=== PATIENT | male | born 1980 | race Caucasian/White ===

== ENCOUNTER 2019-03-27 00:33 | Inpatient (IN) | payer SELFPAY ==
[2019-03-27] VITALS (9 sets, daily range): BP systolic 114–171; BP diastolic 66–87
[~2019-03-27] VITALS: Ht 180.3 cm; Wt 104.7 kg
[2019-03-27 01:28] LABS: BASO # 0.1 10^3/uL (0.0-0.2); BASO % 0.2 % (0.0-1.0); HEMATOCRIT 42.3 % (42.0-52.0); HEMOGLOBIN 13.7 g/dl (13.5-17.5); LYMPH # 0.6 10^3/uL (1.5-5.0); LYMPH % 2.2 % (24.0-44.0); MEAN CORPUSCULAR HEMOGLOBIN 28.7 pg (27.0-33.0); MEAN CORPUSCULAR HGB CONC 32.4 g/dl (32.0-36.5); MEAN CORPUSCULAR VOLUME 88.5 fl (80.0-96.0); MONO # 1.7 10^3/uL (0.0-0.8); PLATELET COUNT, AUTOMATED 310 10^3/uL (150-450); RED BLOOD COUNT 4.78 10^6/uL (4.30-6.10); WHITE BLOOD COUNT 28.5 10^3/uL (4.0-10.0)
[2019-03-27 01:39] LABS: INR 1.31; PARTIAL THROMBOPLASTIN TIME 32.2 SECONDS (25.0-38.4)
[2019-03-27 01:48] LABS: ERYTHROCYTE SEDIMENTATION RATE 12 mm/hr (0-15); NEUTROPHILS # 25.4 10^3/uL (1.5-8.5)
[2019-03-27] MEDS ORDERED: MORPHINE 4 MG/ML 1ML VIAL/SYRINGE (J2270) IV ONE (02:00)
[2019-03-27] MEDS ORDERED: AMPICILLIN SOD/SULBACTAM SOD 3 GM in D5W MINI-BAG PLUS 100 ML IV ONE (02:00)
[2019-03-27 02:01] LABS: ALBUMIN 2.6 GM/DL (3.2-5.2); ALT/SGPT 43 U/L (12-78); BILIRUBIN,DIRECT 0.4 MG/DL (0.0-0.2); BLOOD UREA NITROGEN 9 MG/DL (7-18); CALCIUM LEVEL 8.2 MG/DL (8.5-10.1); CARBON DIOXIDE LEVEL 25 MEQ/L (21-32); CHLORIDE LEVEL 92 MEQ/L (98-107); CREATININE FOR GFR 1.27 MG/DL (0.70-1.30); GLOMERULAR FILTRATION RATE > 60.0 (>60); GLUCOSE, FASTING 280 MG/DL (70-100); POTASSIUM SERUM 3.4 MEQ/L (3.5-5.1); SODIUM LEVEL 128 MEQ/L (136-145); TOTAL PROTEIN 8.7 GM/DL (6.4-8.2)
[2019-03-27] MEDS ORDERED: NS 3,680 ML in IV 1 EA IV ONE (02:15)
[2019-03-27] MEDS ORDERED: MOM 30ML SUSPENSION UDC PO PRN (02:30)
[2019-03-27] MEDS ORDERED: MAALOX 30 ML SUSP *UDC PO PRN (02:30)
--- NOTE | 2019-03-27 02:40 | REPVR ---
PROCEDURE INFORMATION: Exam: XR Right Toe(s) Exam date and time: 03/27/2019 1:51 AM Age: 38 years old Clinical indication: Other: Necrotic/ holes in great toes; Additional info: Necrosis/infection b great toe/? Osteomyelitis TECHNIQUE: Imaging protocol: XR Right toes. Views: Minimum 2 views. COMPARISON: No relevant prior studies available. FINDINGS: Bones/joints: Plantar ulceration of the mid great toe. There is erosion of the adjacent to distal aspect of the proximal phalanx consistent with osteomyelitis. Soft tissues: Soft tissue swelling of the foot, particularly the great toe with multiple foci of gas throughout the medial foot and toes. IMPRESSION: 1. Soft tissue swelling of the foot and great toe with soft tissue gas consistent with infection and cellulitis. 2. Plantar ulceration of the great toe with adjacent erosion of the distal aspect of the proximal phalanx consistent with osteomyelitis. The PROCEDURE INFORMATION: Exam: XR Left Toe(s) Exam date and time: 03/27/2019 1:51 AM Age: 38 years old Clinical indication: Other: Necrotic/ holes in great toes; Additional info: Necrosis/infection b great toe/? Osteomyelitis TECHNIQUE: Imaging protocol: XR Left toes. Views: Minimum 2 views. COMPARISON: No relevant prior studies available. FINDINGS: Bones/joints: There is dorsal subluxation or dislocation of the distal phalanx relative to the proximal phalanx. Fractures of the proximal aspect of the distal phalanx and the distal aspect of the proximal phalanx, particularly dorsally. There is suggestion of some cortical erosion of the proximal phalanx. Soft tissues: Soft tissue swelling of the distal foot and great toe. IMPRESSION: 1. Soft tissue swelling of the great toe which may reflect infection. 2. Dorsal dislocation of the distal phalanx with fracturing of the adjacent proximal aspect of the distal phalanx and distal aspect of the proximal phalanx. There is suggestion of some cortical erosion of the proximal phalanx and findings may reflect osteomyelitis with septic interphalangeal joint. Electronically signed by: Frankie Ivy On 03/27/2019 02:40:17 AM
[2019-03-27] MEDS ORDERED: GLUCAGON FOR INJ 1 MG VIAL (J1610) SC PRN (02:45)
[2019-03-27] MEDS ORDERED: DEXTROSE 50% 50 ML SYRINGE IV PRN (02:45)
[2019-03-27] MEDS ORDERED: GLUCOSE 4 GM CHEW TABLET PO PRN (02:45)
[2019-03-27 03:03] LABS: VENOUS BASE EXCESS 2.3 (-2.0-2.0); VENOUS HCO3 27.5 MEQ/L (23.0-27.0); VENOUS O2 SATURATION 57.2 % (60.0-80.0); VENOUS PARTIAL PRESSURE CO2 44.8 mmHg (38.0-50.0); VENOUS PARTIAL PRESSURE O2 29.2 mmHg (30.0-50.0); VENOUS PH 7.406 UNITS (7.330-7.430); VENOUS STANDARD HCO3 25.4 MEQ/L; VENOUS TOTAL CO2 28.9 MEQ/L (24.0-28.0)
--- NOTE | 2019-03-27 03:43 | HPEPDOC ---
[facility] Medical History & Physical Date of Admission Mar 27, 2019 Date of Service: Mar 27, 2019 Attending Physician: Gerry History and Physical CHIEF COMPLAINT: f/c/ ambulatory dysfunction HISTORY OF PRESENT ILLNESS: Patient is a 38-year-old male with PMH of obesity, tobacco dependence, presenting with ambulatory dysfunction. He reports being a workaholic and has not seen provider for 2 years. Approximately one and half to 2 years ago, he started to have bilateral foot numbness and tingling. Earlier today he started to have chills, subjective fevers and increased right foot pain and subsequently came to the emergency department. He was afebrile in the ED, was found to be tachycardic. Labs include WBC of 28.5, H&H and platelet counts were within normal limits, ESR 12, sodium of 128, potassium 3.4, lactic acid 3.2, CRP 29.8, creatinine 1.72, glucose 280, alkaline phosphatase 127, patient does not have an anion gap, beta hydroxybutyrate 4, PT 16, INR 1.3, PTT 32.2. He denies any headaches, changes in vision, chest pain, shortness of breath, nausea, vomiting, abdominal pain, issues with voiding, joint pains. He was also given a bolus of normal saline IV fluids and a dose of ampicillin, a dose of morphine 4 mg IV 1, which she reports did not alleviate his pain, he does report his pain level to be an average of 2, at worst 5. ROS: 10 point review systems negative except per above. PMH: See above. 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 GENERAL: Obese male in No distress, able to speak in full sentences without difficulty HEENT: Normocephalic, atraumatic, moist mucous membranes NECK: Supple CARDIOVASCULAR EXAMINATION: S1, S2 RESPIRATORY EXAMINATION: CTAB ABDOMINAL EXAMINATION: Soft, nontender, nondistended, positive bowel sounds EXTREMITIES: no edema SKIN: No rash NEUROLOGICAL EXAMINATION: Awake PSYCHIATRIC EXAMINATION: Calm and cooperative, appropriate affect #Sepsis secondary to bilateral osteomyelitis and cellulitis, patient does have underlying newly diagnosed diabetes complicated by neuropathy. Will start patient on broad-spectrum antibiotics, IVF, consult it and discuss case with podiatry, NPO after midnight. Follow-up wound cultures bilaterally, blood cultures. Pain control, avoid opioids. #Leukocytosis/lactic acidosis secondary to infection, see above #Hyperglycemia/Diabetes, will have to be instituted and dependent. Patients A1c is 10, will start patient on insulin sliding scale with hypoglycemic protocol, diabetic education #Ambulatory dysfunction secondary to osteomyelitis/diabetic neuropathy, will have PT eval, start patient on gabapentin. #Hyponatremia, consider secondary in part to pseudo-hyponatremia, corrected sodium is 131, to alcohol use, will obtain urine and serum sodium levels and osmolarity for further evaluation of hyponatremia #Hypokalemia: Replace, will obtain a mag level #Tobacco dependence: Nicotine patch #family hx of DM and SLE: also obtain TSH/T4 DVT prophylaxis. Heparin Full code Vital Signs Vital Signs Date Time Temp Pulse Resp B/P (MAP) Pulse Ox O2 Delivery O2 Flow Rate FiO2 03/27/19 03:14 99.2 120 22 123/78 (93) 100 03/27/19 00:34 Room Air Laboratory Data Labs 24H Laboratory Tests 2 03/27/19 01:19: Immature Granulocyte % (Auto) 2.6, Neutrophils (%) (Auto) 89.0H, Lymphocytes (%) (Auto) 2.2L, Monocytes (%) (Auto) 6.0H, Eosinophils (%) (Auto) 0.0, Basophils (%) (Auto) 0.2, Neutrophils # (Auto) 25.4H, Lymphocytes # (Auto) 0.6L, Monocytes # (Auto) 1.7H, Eosinophils # (Auto) 0.0, Basophils # (Auto) 0.1, Nucleated Red Blood Cells % (auto) 0.0, Erythrocyte Sedimentation Rate 12, Prothrombin Time 16.0H, Prothromb Time International Ratio 1.31, Activated Partial Thromboplast Time 32.2, Anion Gap 11, Glomerular Filtration Rate > 60.0, Estimated Mean Plasma Glucose 240H, Hemoglobin A1c 10.0, Lactic Acid Level 3.2*H, Calcium Level 8.2L, Total Bilirubin 1.0, Direct Bilirubin 0.4H, Aspartate Amino Transf (AST/SGOT) 34, Alanine Aminotransferase (ALT/SGPT) 43, Alkaline Phosphatase 127H, C-Reactive Protein, Quantitative 29.80H, Total Protein 8.7H, Albumin 2.6L, Albumin/Globulin Ratio 0.43L, B-Hydroxybutyrate 4.00H 03/27/19 02:47: Blood Gas Bicarbonate Standard 25.4, Venous Blood pH 7.406, Venous Blood Partial Pressure CO2 44.8, Venous Blood Partial Pressure O2 29.2L, Venous Blood Total Carbon Dioxide 28.9H, Venous Blood HCO3 27.5H, Venous Blood Oxygen Saturation 57.2L, Venous Blood Base Excess 2.3H CBC/BMP Laboratory Tests 03/27/19 01:19 Microbiology Microbiology 03/27/19 Blood Culture, Received Pending 03/27/19 Blood Culture, Received Pending Home Medications No Active Prescriptions or Reported Meds Allergies Coded Allergies: No Known Allergies (Unverified , 03/27/19) A-FIB/CHADSVASC A-FIB History Current/History of A-Fib/PAF?: No DILLON NORMAN MD Mar 27, 2019 03:19
[2019-03-27] MEDS ORDERED: POTASSIUM CHLORIDE 10 MEQ SR TABLET PO ONE (04:00)
[2019-03-27 04:11] LABS: FREE T4 1.49 NG/DL (0.76-1.46)
[2019-03-27 05:00] LABS: D-DIMER QUANT 3081.83 ng/ml (<500)
[2019-03-27] MEDS: NS 1,000 ML IV SCH ×3 (05:08→23:31)
[2019-03-27] MEDS: HEPARIN SOD (PORCINE) 5000 UNITS/ML VIAL SC SCH ×3 (05:37→21:33)
[2019-03-27] MEDS: CEFEPIME HCL 2 GM in D5W MINI-BAG PLUS 50 ML IV SCH ×3 (05:37→21:34)
--- NOTE | 2019-03-27 06:04 | PHACANCOPD ---
PHARMACY VANCOMYCIN DOSING Pt Demographics Demographics Patient Age:38 , Weight:122.730 , Gender: male Adjusted Body Weight Date: 03/27/19, Adjusted Body Weight: [94.3] Kg Vancomycin Vancomycin indication: CELLULITIS,OSTEO RT TOE Vancomycin Target Ranges: 15-20 mcg/ml Vancomycin Load Y/N: Yes Load Dose Date Time Vancomycin Load Dose: 2GM Date: 03/27 Time: 0700 Vancomycin Dose Date: 03/27/19. Current Vancomycin Dose: [1 GM Q8H] Intermittent Dosing?: No Labs Micro Microbiology 03/27/19 Wound Culture, Received Pending 03/27/19 Wound Culture, Received Pending 03/27/19 Blood Culture, Received Pending 03/27/19 Blood Culture, Received Pending Creatinine Clearance Date:03/27/19. Creatinine Clearance: [107].CALCULATED Assessment and Plan Maintaining Current Dose?: Yes Reason for dose change: No Dose Change Pharmacist Note Pharmacist Note Date: 03/27/19. Pharmacist note:38 YOM ADMITTED W/ cellulitis/osteo rt toe.SCR=1.27,calculated OEGH=080, HT:71",WT:122.73 kg(ABW=91.44kg).Ordered Cefepime 2 grams IV Q8H and pharmacy dosed Vancomycin. Vancomycin 2 gram load ordered, then will begin 1 gram IV Q8Hour regimen. First trough is ordered for 03/28@0600(prior to the 4th dose). Will continue to follow and make adjustments as needed VI[facility] Mar 27, 2019 06:04
[2019-03-27] MEDS ORDERED: VANCOMYCIN HCL 1,000 MG, VIAL MATE ADAPTER 1 EACH in D5W 250 ML IV ONE ×2 (07:00→08:00)
[2019-03-27] MEDS: HumaLOG INSULIN (NovoLOG) PER UNIT SC SCH ×4 (07:30→21:00)
--- NOTE | 2019-03-27 08:23 | IPN ---
DATE: 03/27/2019 CHIEF COMPLAINT: 38-year-old male, newly diagnosed diabetic seen for evaluation post swelling, pain, discharge from both his big toes. The patient states he has been noticing a callus, which broke open on the bottom of his foot for approximately 3 years. The patient did not seek any medical attention for this. He states recently that it became very swollen and had numbness and tingling. States had a fever and subsequently went to the emergency room and is admitted. SOCIAL HISTORY: The patient smokes 1-1-1/2 packs of tobacco per day. Occasional alcohol consumption. PAST SURGICAL HISTORY: Status post tonsillectomy. PHYSICAL EXAMINATION: The patient is an awake, alert and oriented, 38-year-old male. He has considerable swelling present of his right foot with cellulitis up to his mid foot. There is some swelling localized around the left big toe, however, the ulcer on the left toe has necrotic change on the hallux. Both ulcers extend down to bone. X-rays were reviewed revealing osseous loss of the proximal phalanx head. On the left hallux there is some cortical erosion of the proximal phalanx, which may represent osteomyelitis on the right big toe. The dorsalis pedis and posterior tibial pulses are palpable. There is good range of motion of the ankle, metatarsal and subtalar joints. The nails are considerably thickened and dystrophic. ASSESSMENT: 1. Osteomyelitis with necrosis left hallux. 2. Stage IV ulceration right big toe with infection, possible osteomyelitis. PLAN: The patient is scheduled for an MRI of both toes today. The patient is nothing by mouth after breakfast. We discussed the surgical procedure consisting of a left partial hallux amputation, right surgical debridement up to and possibly including bone pending the MRI. His questions are answered. Informed consent was obtained and signed by the patient.
[2019-03-27] MEDS: DOCUSATE SODIUM 100 MG CAP PO SCH ×2 (08:54→21:33)
[2019-03-27] MEDS: GABAPENTIN 100 MG CAP PO SCH ×3 (08:54→21:33)
[2019-03-27] MEDS: NICOTINE 21MG/24HR 1 EA TRANSDERMAL TD SCH (08:55)
[2019-03-27] MEDS: ACETAMINOPHEN TAB 650MG DOSE (2X325MG) PO PRN (12:06)
[2019-03-27] MEDS: VANCOMYCIN HCL 1,000 MG, VIAL MATE ADAPTER 1 EACH in D5W 250 ML IV SCH ×2 (16:36→23:32)
[2019-03-27] MEDS ORDERED: BUPIVACAINE HCL 0.5% 30 ML VIAL As Ordered ONE (17:26)
[2019-03-27] MEDS ORDERED: GENTAMICIN SULF INJ 80MG/2ML VIAL (J1580) As Ordered ONE (17:26)
[2019-03-27] MEDS ORDERED: LIDOCAINE 2% MDV 20 ML VIAL As Ordered ONE (17:26)
[2019-03-27] MEDS ORDERED: KETAMINE HCL 200 MG/20 ML VIAL As Ordered ONE (17:37)
[2019-03-27] MEDS ORDERED: MIDAZOLAM INJ 2 MG/2 ML VIAL (J2250) As Ordered ONE ×2 (17:38→18:09)
[2019-03-27] MEDS ORDERED: propofoL 200 MG/20 ML VIAL As Ordered ONE (17:38)
[2019-03-27] MEDS ORDERED: LIDOCAINE 2% INJ 100 MG/5 ML SDV (FOR ANES.) As Ordered ONE (17:38)
[2019-03-27] MEDS ORDERED: fentaNYL 100 MCG/2 ML INJECTION (J3010) As Ordered ONE (17:38)
[2019-03-27] MEDS ORDERED: dexameTHASONE 4 MG/ML 1ML VIAL (J1100) As Ordered ONE (17:44)
[2019-03-27] MEDS ORDERED: MIDAZOLAM INJ 5 MG/ML VIAL (J2250) As Ordered ONE (18:10)
[2019-03-27] MEDS ORDERED: PERCOCET 5MG/325MG TAB PO PRN ×2 (20:15)
[2019-03-28 00:10] VITALS: BP 139/76
--- NOTE | 2019-03-28 01:31 | REP ---
Clinical: Pain. Technique: AP, lateral, oblique view of the left foot. Findings: Evidence for prior partial amputation at the level of the first metatarsophalangeal joint. Visualized osseous structures are intact and essentially normal. Lateral view demonstrates moderate calcaneal heal spur. Surrounding soft tissues are grossly unremarkable. Impression: No obvious acute process appreciated. Electronically Signed by Bob Jean Baptiste MD 03/28/2019 01:22 A
[2019-03-28] MEDS: NS 1,000 ML IV SCH ×2 (03:05→09:53)
[2019-03-28 04:00] VITALS: BP 144/83
[2019-03-28] MEDS: HEPARIN SOD (PORCINE) 5000 UNITS/ML VIAL SC SCH ×3 (06:05→21:26)
[2019-03-28] MEDS: CEFEPIME HCL 2 GM in D5W MINI-BAG PLUS 50 ML IV SCH ×3 (06:06→21:26)
[2019-03-28 06:19] LABS: HEMATOCRIT 36.5 % (42.0-52.0); HEMOGLOBIN 11.8 g/dl (13.5-17.5); MEAN CORPUSCULAR HEMOGLOBIN 28.9 pg (27.0-33.0); MEAN CORPUSCULAR HGB CONC 32.3 g/dl (32.0-36.5); MEAN CORPUSCULAR VOLUME 89.2 fl (80.0-96.0); PLATELET COUNT, AUTOMATED 234 10^3/uL (150-450); RED BLOOD COUNT 4.09 10^6/uL (4.30-6.10); WHITE BLOOD COUNT 11.9 10^3/uL (4.0-10.0)
[2019-03-28 06:40] LABS: BLOOD UREA NITROGEN 6 MG/DL (7-18); CALCIUM LEVEL 8.1 MG/DL (8.5-10.1); CARBON DIOXIDE LEVEL 26 MEQ/L (21-32); CHLORIDE LEVEL 103 MEQ/L (98-107); CREATININE FOR GFR 0.81 MG/DL (0.70-1.30); GLOMERULAR FILTRATION RATE > 60.0 (>60); GLUCOSE, FASTING 169 MG/DL (70-100); POTASSIUM SERUM 3.2 MEQ/L (3.5-5.1); SODIUM LEVEL 135 MEQ/L (136-145); VANCOMYCIN LEVEL TROUGH 6.3 UG/ML (10.0-20.0)
--- NOTE | 2019-03-28 06:52 | PHACANCOPD ---
PHARMACY VANCOMYCIN DOSING Pt Demographics Demographics Patient Age:38 , Weight:108.600 , Gender: male Adjusted Body Weight Date: 03/27/19, Adjusted Body Weight: [94.3] Kg Events Past 24 Hours Events Past 24 Hours: NO: Dialysis, Diuretic Therapy, Change in CrCl, Fever, Elevation in WBC, Pending Diagnostics, Pending Procedures, Other Vancomycin Vancomycin indication: CELLULITIS,OSTEO RT TOE Vancomycin Target Ranges: 15-20 mcg/ml Vancomycin Load Y/N: Yes Load Dose Date Time Vancomycin Load Dose: 2GM Date: 03/27 Time: 0700 Vancomycin Dose Date: 03/28/19. Current Vancomycin Dose: [1.5 GM Q6H] Intermittent Dosing?: No Labs Labs Item Value Date Time White Blood Count 11.9 10^3/uL H 03/28/19 0549 Glomerular Filtration Rate > 60.0 03/28/19 0549 Creatinine 0.81 MG/DL 03/28/19 0549 Blood Urea Nitrogen 6 MG/DL L 03/28/19 0549 Vancomycin Level Trough 6.3 UG/ML L 03/28/19 0549 Vital Signs Label Value Date Time Patient Temperature 96.8 degrees F 03/28/19 0400 Temperature Source Temporal 03/28/19 0400 Micro Microbiology 03/27/19 Wound Culture, Received Pending 03/27/19 Wound Culture, Received Pending 03/27/19 Blood Culture - Preliminary, Resulted No growth after 24 hours . All specim... 03/27/19 Blood Culture - Preliminary, Resulted No growth after 24 hours . All specim... 03/27/19 Wound Culture, Received Pending 03/27/19 Anaerobic Culture, Received Pending 03/27/19 Wound Culture, Received Pending 03/27/19 Anaerobic Culture, Received Pending Creatinine Clearance Date:03/27/19. Creatinine Clearance: [107].CALCULATED Pending Labs Trough 1-14 @1300 Assessment and Plan Maintaining Current Dose?: No Reason for dose change: Trough too low Pharmacist Note Pharmacist Note Date: 03/28/19. Pharmacist note:Trough of 6.3 is below target range. Dosing increased to 1500mg q6h. Will monitor and make adjustments as needed. [facility] Mar 28, 2019 06:52
--- NOTE | 2019-03-28 07:14 | REP ---
MRI bilateral foot: Without contrast. History: Bilateral exam attention great toe bilaterally. Bilateral ulcers. Evaluate for osteomyelitis. Comparison is made with today's radiographs showing soft tissue gas and soft tissue deficit in the right medial forefoot and extensive soft tissue swelling and bony erosive change in the left great toe phalanges. Technique: Axial, coronal and sagittal imaging planes were utilized. T1 and T2-weighted scans were included with and without fat saturation. MRI findings right foot: T1 and T2-weighted scans demonstrate innumerable bubbles of air in the plantar soft tissues of the medial forefoot along the plantar aspect of the first metatarsal and proximal phalanx extending into the first intermetatarsal space. No soft tissue abscess is appreciated. There is some decreased T1 increased T2 signal intensity in the proximal phalanx of the right great toe. No cortical destruction is seen. There is a small joint effusion at the first MTP joint of the right great toe. Signal intensity on T1 and T2-weighted scans is normal in the first metatarsal. Metatarsals are otherwise intact. Signal intensity in the other phalanges is intact. There is evidence of a focal plantar skin deficit at the level of the IP joint of the great toe. Impression: Soft tissue gas in the plantar aspect medial forefoot. No soft tissue abscess is seen. There is low T1 high T2 signal intensity in the proximal phalanx of the right great toe which may reflect osteomyelitis. No cortical destruction is seen. MRI findings left foot: On the left, there is extensive abnormal low T1 and high T2 signal intensity throughout the proximal phalanx and distal phalanx of the great toe consistent with osteomyelitis. Bone signal intensity in the first metatarsal on the left is normal. No soft tissue abscess is seen. On axial images there is extensive cortical destruction in the proximal phalanx and distal phalanx of the great toe. Impression: There is evidence of advanced osteomyelitis affecting the proximal and distal phalanges of the great toe on the left side. There is abnormal signal intensity suggesting significant edema in the proximal and distal phalanges of the right great toe however no cortical disruption is seen on the right. No soft tissue abscess is seen on either side. There is extensive soft tissue gas in the plantar soft tissues on the right medial forefoot. Electronically Signed by Rodolfo Aden MD 03/28/2019 07:53 A
[2019-03-28 08:00] VITALS: BP 127/72
[2019-03-28] MEDS ORDERED: VANCOMYCIN HCL 1,000 MG, VIAL MATE ADAPTER 1 EACH in D5W 250 ML IV SCH (08:00)
[2019-03-28] MEDS: HumaLOG INSULIN (NovoLOG) PER UNIT SC SCH ×4 (08:56→21:30)
[2019-03-28] MEDS: NICOTINE 21MG/24HR 1 EA TRANSDERMAL TD SCH (08:56)
[2019-03-28] MEDS: DOCUSATE SODIUM 100 MG CAP PO SCH ×2 (08:57→21:25)
[2019-03-28] MEDS: GABAPENTIN 100 MG CAP PO SCH ×3 (08:57→21:25)
[2019-03-28] MEDS ORDERED: VANCOMYCIN HCL 500 MG in D5W MINI-BAG PLUS 100 ML IV SCH (09:00)
--- NOTE | 2019-03-28 09:26 | RO ---
DATE OF PROCEDURE: 03/27/2019 PREOPERATIVE DIAGNOSES: 1. Osteomyelitis left hallux. 2. Stage IV ulceration right foot. POSTOPERATIVE DIAGNOSES: 1. Osteomyelitis left hallux. 2. Stage IV ulceration right foot with plantar space infection and dorsal space infection right foot. PROCEDURE:1. hallux amputation left foot 2. I&D dorsal, plantar superficial and deep compartment right foot 3. debredement of muscle and tendon right foot. SURGEON: Mateus Jin DPM [place] PILOT: None. ANESTHESIA: Local monitored anesthesia care (MAC). IRRIGATION: Dilute gentamicin solution 3 liters, low pressure pulse lavage system. PACKING UTILIZED: 1/2 inch iodoform gauze. ESTIMATED BLOOD LOSS: 40 mL. DESCRIPTION OF PROCEDURE: On 03/27/2019, this 38-year-old white male was taken from his hospital room to the operating room and placed on the operating room table in a supine position. Following the induction of IV sedation, local and regional anesthesia, the right and left lower extremity was prepped and draped in the usual aseptic manner. Attention was noted at the right foot, where there was note to be a demarcated abscess on the plantar surface of the foot as well as an ulceration extending into the tendinous area of the right foot. Utilizing a large [place] hemostat and tongue and groove director, an incision was made on the plantar surface of the foot starting from the ulceration on the interphalangeal joint. This measured 13 cm in overall length and approximately 10-15 mL of purulent matter was expressed and collected for aerobic and anaerobic culture. The flexor hallucis longus tendon was noted to be ruptured from this plantar space infection just proximal to the ulceration on the plantar surface of the foot. This area was debrided of narcotic tissue. There was narcotic muscle of the plantar aspect of the foot as well, and this was debrided consisting of the flexor hallucis muscle. Plantar fascia was exposed and an incision was made in the plantar fascia and , and there was an abscess in the central space. However, only 2 mm of purulent matter was expressed in this area and the area was thoroughly evaluated. All areas where the abscess was exposed were debrided and explored. All purulent matter was expressed on the plantar surface. On the dorsal surface of the foot the abscess did extend around the hallux of the dorsal aspect of the foot. A hemostat was then placed into this dorsal area and a 2 cm dorsal incision was made. A minimal amount of purulent was expressed from this area, and the wound was copiously lavaged with gentamicin solution with a low pressure pulse lavage system. 1/2 inch iodoform gauze on the plantar and dorsal aspect and dry sterile dressing was applied consisting of 4 x 4's, ABD, and Kerlix. Attention was then directed to the patient's left foot, where a fishmouth incision was placed over this ulcerated area. The toe was necrotic on the plantar surface and there necrotic osteomyelitic bone. This area was debrided. Unfortunately, the proximal phalanx was noted to be necrotic right to the base and could not be salvaged, and therefore, this was surgically removed. However, there was considerable fragmentation of this bone. The area was explored and any fragments that were identified were excised and removed. All bleeders as encountered were electrocoagulated. The wound was flushed with copious amounts of dilute gentamicin with a low pressure pulse lavage system. It was packed with iodoform gauze and two stitches of #3-0 nylon suture were used to prevent contraction of the surgical margin. However, this wound as well as the right wound may need to be explored and debrided again depending on his response to his antibiotics. The patient having apparently tolerated the surgical procedure well was taken from the operating room (OR) to the recovery room for further monitoring by the anesthesia department. BETSY
[2019-03-28] MEDS: POTASSIUM CHLORIDE 10 MEQ SR TABLET PO SCH ×2 (09:52→14:05)
--- NOTE | 2019-03-28 14:01 | PHACANCOPD ---
PHARMACY VANCOMYCIN DOSING Pt Demographics Demographics Patient Age:38 , Weight:108.600 , Gender: male Adjusted Body Weight Date: 03/27/19, Adjusted Body Weight: [94.3] Kg Vancomycin Vancomycin indication: CELLULITIS,OSTEO RT TOE Vancomycin Target Ranges: 15-20 mcg/ml Vancomycin Load Y/N: Yes Load Dose Date Time Vancomycin Load Dose: 2GM Date: 03/27 Time: 0700 Vancomycin Dose Date: 03/28/19. Current Vancomycin Dose: [1.5 GM Q8H] Date: 03/28/19. Current Vancomycin Dose: [1.5 GM Q6H] Intermittent Dosing?: No Labs Micro Microbiology 03/27/19 Wound Culture, Received Pending 03/27/19 Wound Culture, Received Pending 03/27/19 Blood Culture - Preliminary, Resulted No growth after 24 hours . All specim... 03/27/19 Blood Culture - Preliminary, Resulted No growth after 24 hours . All specim... 03/27/19 Wound Culture, Received Pending 03/27/19 Anaerobic Culture, Received Pending 03/27/19 Wound Culture, Received Pending 03/27/19 Anaerobic Culture, Received Pending Creatinine Clearance Date:03/27/19. Creatinine Clearance: [107].CALCULATED Pending Labs Trough 1-14 @1300 Assessment and Plan Maintaining Current Dose?: No Reason for dose change: Trough too high Pharmacist Note Pharmacist Note Date: 03/28/19. Pharmacist note: Trough after one dose of increased dose resulted at 15.9, will change to 1500 mg IV q8h. Pharmacy will continue to monitor and make adjustments as needed. Date: 03/28/19. Pharmacist note:Trough of 6.3 is below target range. Dosing increased to 1500mg q6h. Will monitor and make adjustments as needed. WAQAR DONOHUE [facility] Mar 28, 2019 14:01
[2019-03-28 16:00] VITALS: BP 116/76
[2019-03-28] MEDS: VANCOMYCIN HCL 1,000 MG, VIAL MATE ADAPTER 1 EACH in D5W 250 ML IV SCH (17:33)
[2019-03-28] MEDS: VANCOMYCIN HCL 500 MG in D5W MINI-BAG PLUS 100 ML IV SCH (18:42)
--- NOTE | 2019-03-28 19:09 | IPNPDOC ---
Date Seen The patient was seen on 03/28/19. Progress Note SUBJECTIVE: 38-year-old male with newly diagnosed diabetes mellitus, was admitted for osteomyelitis of the left toe, status post debridement/amputation. Patient reports improvement in pain, without any other complaints at this time. He denies any shortness of breath, chest pain, nausea, vomiting, abdominal pain or diarrhea. 10 point review of system is negative except for above PHYSICAL EXAMINATION: VITAL SIGNS: Please see below. GENERAL: No distress HEENT: Normocephalic, atraumatic, moist mucous membranes NECK: Supple CARDIOVASCULAR EXAMINATION: S1, S2, no murmurs RESPIRATORY EXAMINATION: Clear to auscultation, no wheezing ABDOMINAL EXAMINATION: Soft, nontender, nondistended, positive bowel sounds EXTREMITIES: Dressing in place on both feet, clean, dry and intact SKIN: No rash NEUROLOGICAL EXAMINATION: Alert and oriented 3, no focal deficits PSYCHIATRIC EXAMINATION: Calm and cooperative LABORATORY DATA, IMAGING STUDIES, MICROBIOLOGY: Please see below. ASSESSMENT AND PLAN: 38-year-old male with newly diagnosed diabetes mellitus, was admitted for osteomyelitis, is status post debridement/amputation. PROBLEMS: 1. Left toe osteomyelitis: Status post amputation by Podiatry, continue vancomycin, cefepime, cultures pending, continue pain control. 2. Diabetes mellitus: Continue sliding scale coverage before meals and at bedtime. DVT prophylaxis: Heparin subcutaneous GI prophylaxis: Not needed VS, I&O, 24H, Fishbone Vital Signs/I&O Vital Signs Date Time Temp Pulse Resp B/P (MAP) Pulse Ox O2 Delivery O2 Flow Rate FiO2 03/28/19 16:00 97.5 97 20 116/76 (89) 97 Room Air I&O- Last 24 Hours up to 6 AM 03/28/19 06:00 Intake Total 3103 ml Output Total 3640 ml Balance -537 ml Laboratory Data 24H LABS Laboratory Tests 2 03/27/19 21:28: Bedside Glucose (Misc Panel) 266H 03/28/19 05:49: Nucleated Red Blood Cells % (auto) 0.0, Anion Gap 6L, Glomerular Filtration Rate > 60.0, Calcium Level 8.1L, Vancomycin Level Trough 6.3L 03/28/19 12:14: Bedside Glucose (Misc Panel) 184H 03/28/19 13:03: Vancomycin Level Trough 15.9 03/28/19 17:03: Bedside Glucose (Misc Panel) 192H CBC/BMP Laboratory Tests 03/28/19 05:49 Microbiology Microbiology 03/27/19 Wound Culture, Received Pending 03/27/19 Wound Culture, Received Pending 03/27/19 Blood Culture - Preliminary, Resulted No growth after 24 hours . All specim... 03/27/19 Blood Culture - Preliminary, Resulted No growth after 24 hours . All specim... 03/27/19 Wound Culture, Received Pending 03/27/19 Anaerobic Culture, Received Pending 03/27/19 Wound Culture, Received Pending 03/27/19 Anaerobic Culture, Received Pending CHARITY AVILA MD Mar 28, 2019 19:09
[2019-03-28 20:00] VITALS: BP 126/72
--- NOTE | 2019-03-28 21:47 | CR ---
DATE OF CONSULTATION: 03/28/2019 Asked to consult by Dr. Jin for evaluation of right foot osteomyelitis and deep tissue infection in a patient with sepsis. HISTORY OF PRESENT ILLNESS: Roger is a pleasant, 38-year-old gentleman with a history of obesity and tobacco dependence who presented to the hospital yesterday with fever and flu-like illness. The patient had a temperature of 102. In the emergency room he was noted to have a white count of 28,000. He was hypotensive in spite of the IV fluids. The patient was started on broad-spectrum antibiotics with vancomycin and cefepime. He had an abscess of his right foot with x-ray suggestive of osteomyelitis and his left big toe had also osteomyelitis. The patient had a history of bilateral foot numbness and tingling for about 2 years before admission. The past year he has lost about 100 pounds without even trying. He did not know why he was losing the weight. He has not been seen by a primary care provider in over 2 years. 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 He denies any nausea, vomiting, diarrhea, abdominal pain. He did complain of frequency and polydipsia and he was drinking a lot of Coke. The patient was taken to the operating room by Dr. Jin, had amputation of the left big toe and an I and D of the right foot and there was some concerning tissue that is still persistent in the right foot. There was debridement of the muscle and the tendon of the foot. The patient is feeling better today, his fever has resolved. He denies any pain in his feet but he has significant neuropathy. MEDICATIONS: - vancomycin 1.5 grams IV every 8 hours - cefepime 2 grams IV every 8 hours - gabapentin 100 mg by mouth three times a day - nicotine patch one patch daily - Lispro sliding scale - Tylenol as needed ALLERGIES: No known drug allergies. LABORATORY DATA: Yesterday, his white count was 28.5, today was 11.9, hemoglobin 11.8, hematocrit 36.5, platelets 234. ESR 12. Sodium 135, potassium 3.2, chloride 103, bicarbonate 26, BUN 6x, creatinine 0.81, glucose 169, lactic acid was 3.5, AST 34, ALT 43, alkaline phosphatase 127, CRP 29.8, total protein 8.7, albumin 2.6, TSH 1.64, free T4 slightly elevated at 1.49. Blood cultures two sets from yesterday were negative times two. Foot culture is still pending. IMAGING: Foot x-ray AP and lateral show no obvious acute process on the left side except for a calcaneus spur. Foot MRI done on 03/27/2019 of both feet shows soft tissue gas in the plantar aspect of the medial forefoot. No abscesses seen even though intraoperatively there was at least 15 mL of pus that was drained. There is osteomyelitis of the right big toe with no cortical destruction seen. There is also evidence of advanced osteomyelitis of the proximal and distal phalanges of the great toe on the left side that has been amputated. PHYSICAL EXAMINATION: Today, the patient looks good, in no acute distress. Temperature is 97.5, pulse 97, respirations 20, blood pressure 116/76, oxygen saturation 97% on room air. Heart: Normal S1, S2, tachycardiac. No murmurs, rubs or gallops. Lungs are clear. No wheezes, rales, or rhonchi. Abdomen: Obese, soft, nontender. No hepatosplenomegaly. Back: No CVA or lumbosacral tenderness. Extremities: Trace edema bilaterally. Right leg along the [place] has slight erythema and along the right foot. The right plantar aspect of the foot has a large incision extending from the big toe down to the heel with some necrotic muscle and tendon, bluish discoloration of the skin around the incision with some maceration. There is bloody discharge. The packing was removed. No significant tenderness as the patient has significant neuropathy. Decreased sensation to light touch and position sense. Left foot has amputation of the left big toe. No surrounding cellulitis. Sutures in place. +2 dorsalis pedis bilaterally. IMPRESSION: This is a 38-year-old gentleman with a recent diagnosis of diabetes with diabetic neuropathy admitted with chronic osteomyelitis of the left toe status post amputation and acute osteomyelitis of the right big toe and deep tissue abscess of the right foot with significant tendon involvement and myositis status post I and D. Blood cultures are negative. Intraoperative cultures are still pending. Clinically, the patient is doing better with current antibiotic. PLAN: I suspect the patient will need further debridement on the right foot. I discussed with Dr. Jin my findings and whether he would benefit from a wound VAC. He should continue on IV vancomycin and cefepime until results of cultures are available. I suspect the patient will need home IV antibiotics. I did discuss with him the fact that he had to be off his feet for at least 2 months and would not be able to return to work for a little until his right foot is completely healed. Also discussed with him smoking cessation as this increases his cardiac risk factor. Discussed with him his new diagnosis of diabetes and compliance with diet. Will de-escalate antibiotics as soon as cultures are available. Thank you for the consultation.
[2019-03-29] VITALS (8 sets, daily range): BP systolic 119–144; BP diastolic 72–85
[2019-03-29] MEDS: VANCOMYCIN HCL 1,000 MG, VIAL MATE ADAPTER 1 EACH in D5W 250 ML IV SCH (01:27)
[2019-03-29] MEDS: VANCOMYCIN HCL 500 MG in D5W MINI-BAG PLUS 100 ML IV SCH (02:38)
[2019-03-29] MEDS: CEFEPIME HCL 2 GM in D5W MINI-BAG PLUS 50 ML IV SCH (06:01)
[2019-03-29] MEDS: HEPARIN SOD (PORCINE) 5000 UNITS/ML VIAL SC SCH ×3 (06:01→21:01)
[2019-03-29 08:15] LABS: HEMOGLOBIN 11.5 g/dl (13.5-17.5); MEAN CORPUSCULAR HEMOGLOBIN 28.6 pg (27.0-33.0); MEAN CORPUSCULAR HGB CONC 31.9 g/dl (32.0-36.5); MEAN CORPUSCULAR VOLUME 89.6 fl (80.0-96.0); PLATELET COUNT, AUTOMATED 256 10^3/uL (150-450); RED BLOOD COUNT 4.02 10^6/uL (4.30-6.10); WHITE BLOOD COUNT 12.8 10^3/uL (4.0-10.0)
[2019-03-29] MEDS: GABAPENTIN 100 MG CAP PO SCH ×3 (08:24→20:16)
[2019-03-29] MEDS: HumaLOG INSULIN (NovoLOG) PER UNIT SC SCH ×4 (08:24→20:09)
[2019-03-29] MEDS: NICOTINE 21MG/24HR 1 EA TRANSDERMAL TD SCH (08:25)
[2019-03-29] MEDS: DOCUSATE SODIUM 100 MG CAP PO SCH ×2 (09:00→20:16)
[2019-03-29 09:08] LABS: BLOOD UREA NITROGEN 6 MG/DL (7-18); CALCIUM LEVEL 7.7 MG/DL (8.5-10.1); CARBON DIOXIDE LEVEL 23 MEQ/L (21-32); CHLORIDE LEVEL 105 MEQ/L (98-107); CREATININE FOR GFR 0.69 MG/DL (0.70-1.30); GLOMERULAR FILTRATION RATE > 60.0 (>60); GLUCOSE, FASTING 146 MG/DL (70-100); MAGNESIUM LEVEL 2.1 MG/DL (1.8-2.4); POTASSIUM SERUM 3.5 MEQ/L (3.5-5.1); SODIUM LEVEL 137 MEQ/L (136-145)
[2019-03-29] MEDS: ceFAZolin SOD 2 GM in IV 1 EA IV SCH ×2 (12:18→20:16)
[2019-03-29] MEDS ORDERED: LIDOCAINE 2% MDV 20 ML VIAL As Ordered ONE (13:31)
[2019-03-29] MEDS ORDERED: BUPIVACAINE HCL 0.5% 10 ML VIAL As Ordered ONE (13:31)
[2019-03-29] MEDS ORDERED: propofoL 200 MG/20 ML VIAL As Ordered ONE ×2 (16:13→18:01)
[2019-03-29] MEDS ORDERED: LIDOCAINE 2% INJ 100 MG/5 ML SDV (FOR ANES.) As Ordered ONE (16:13)
[2019-03-29] MEDS ORDERED: ONDANSETRON 4MG/2ML VIAL (J2405) As Ordered ONE (16:14)
[2019-03-29] MEDS ORDERED: dexameTHASONE 4 MG/ML 1ML VIAL (J1100) As Ordered ONE (16:14)
[2019-03-29] MEDS ORDERED: MIDAZOLAM INJ 2 MG/2 ML VIAL (J2250) As Ordered ONE (16:14)
[2019-03-29] MEDS ORDERED: KETAMINE HCL 200 MG/20 ML VIAL As Ordered ONE (17:38)
[2019-03-29] MEDS ORDERED: GENTAMICIN SULF INJ 80MG/2ML VIAL (J1580) As Ordered ONE (17:40)
[2019-03-29] MEDS ORDERED: ONDANSETRON 4MG/2ML VIAL (J2405) IV PRN (19:00)
[2019-03-29] MEDS ORDERED: LR 1,000 ML IV SCH (19:00)
[2019-03-29] MEDS ORDERED: PERCOCET 5MG/325MG TAB PO PRN (19:00)
[2019-03-29] MEDS ORDERED: MORPHINE 2 MG/ML 1ML VIAL (J2270) IV PRN (19:00)
--- NOTE | 2019-03-29 20:12 | IPNPDOC ---
Date Seen The patient was seen on 03/29/19. Progress Note SUBJECTIVE: 38-year-old male with newly diagnosed diabetes mellitus, was admitted for osteomyelitis of the left toe, status post debridement/amputation. Patient reports improvement in pain, without any other complaints at this time. He denies any shortness of breath, chest pain, nausea, vomiting, abdominal pain or diarrhea. 03/29/19 Patient comfortable in the morning, schedule for further debridement of R foot today. He denies any SOB, CP, N/V/D or abdominal pain. 10 point review of system is negative except for above PHYSICAL EXAMINATION: VITAL SIGNS: Please see below. GENERAL: No distress HEENT: Normocephalic, atraumatic, moist mucous membranes NECK: Supple CARDIOVASCULAR EXAMINATION: S1, S2, no murmurs RESPIRATORY EXAMINATION: Clear to auscultation, no wheezing ABDOMINAL EXAMINATION: Soft, nontender, nondistended, positive bowel sounds EXTREMITIES: Dressing in place on both feet, clean, dry and intact SKIN: No rash NEUROLOGICAL EXAMINATION: Alert and oriented 3, no focal deficits PSYCHIATRIC EXAMINATION: Calm and cooperative LABORATORY DATA, IMAGING STUDIES, MICROBIOLOGY: Please see below. ASSESSMENT AND PLAN: 38-year-old male with newly diagnosed diabetes mellitus, w as admitted for osteomyelitis, is status post debridement/amputation. PROBLEMS: 1. Left toe osteomyelitis: Status post amputation by Podiatry, cultures growing MSSA & strep, antibiotics switched to Ancef, continue pain control. R foot deep tissue infection w/ abscess - s/p debridement x1, scheduled for repeat debridement today. 2. Diabetes mellitus: Continue sliding scale coverage before meals and at bedtime. DVT prophylaxis: Heparin subcutaneous GI prophylaxis: Not needed VS, I&O, 24H, Ricardo Vital Signs/I&O Vital Signs Date Time Temp Pulse Resp B/P (MAP) Pulse Ox O2 Delivery O2 Flow Rate FiO2 03/29/19 19:10 97.5 93 18 129/75 (93) 95 Room Air 03/29/19 18:42 10 I&O- Last 24 Hours up to 6 AM 03/29/19 06:00 Intake Total 2170 ml Output Total 1250 ml Balance 920 ml Laboratory Data 24H LABS Laboratory Tests 2 03/28/19 21:24: Bedside Glucose (Misc Panel) 254H 03/29/19 07:43: Bedside Glucose (Misc Panel) 148H 03/29/19 08:04: Nucleated Red Blood Cells % (auto) 0.0, Anion Gap 9, Glomerular Filtration Rate > 60.0, Calcium Level 7.7L, Phosphorus Level 3.0, Magnesium Level 2.1, C- Reactive Protein, Quantitative 23.60H, Vancomycin Level Trough 14.6 03/29/19 11:54: Bedside Glucose (Misc Panel) 167H 03/29/19 16:26: Bedside Glucose (Misc Panel) 154H 03/29/19 18:48: Bedside Glucose (Misc Panel) 174H 03/29/19 19:53: Bedside Glucose (Misc Panel) 207H CBC/BMP Laboratory Tests 03/29/19 08:04 Microbiology Microbiology 03/27/19 Wound Culture - Preliminary, Resulted Staphylococcus Aureus Strep Agalactiae Group B Corynebacterium Species 03/27/19 Wound Culture - Preliminary, Resulted Staphylococcus Aureus Strep Agalactiae Group B Corynebacterium Species 03/27/19 Blood Culture - Preliminary, Resulted No Growth after 48 hours. All Specime... 03/27/19 Blood Culture - Preliminary, Resulted No Growth after 48 hours. All Specime... 03/27/19 Wound Culture - Preliminary, Resulted Strep Agalactiae Group B Staphylococcus Aureus 03/27/19 Anaerobic Culture, Resulted Pending 03/27/19 Wound Culture - Preliminary, Resulted Strep Agalactiae Group B 03/27/19 Anaerobic Culture, Resulted Pending CHARITY AVILA MD Mar 29, 2019 20:12
--- NOTE | 2019-03-29 22:16 | IPN ---
DATE: 03/29/2019 CHIEF COMPLAINT: Patient seen for evaluation of his left foot. Patient's bandage was removed, revealing an incision in the dorsal and plantar aspect of the foot with necrotic wound margins on the medial and lateral border. There is some purulent discharge with plantar pressure coming from the inferior aspect of the inferior incision. Patient is scheduled for a surgical debridement of his right foot. Informed consent was obtained.
[2019-03-30 04:00] VITALS: BP 131/80
[2019-03-30] MEDS: ceFAZolin SOD 2 GM in IV 1 EA IV SCH ×3 (04:25→20:10)
[2019-03-30] MEDS: HEPARIN SOD (PORCINE) 5000 UNITS/ML VIAL SC SCH ×3 (05:27→20:12)
[2019-03-30 05:57] LABS: HEMATOCRIT 37.8 % (42.0-52.0); MEAN CORPUSCULAR HEMOGLOBIN 28.4 pg (27.0-33.0); MEAN CORPUSCULAR HGB CONC 31.7 g/dl (32.0-36.5); MEAN CORPUSCULAR VOLUME 89.4 fl (80.0-96.0); PLATELET COUNT, AUTOMATED 295 10^3/uL (150-450); RED BLOOD COUNT 4.23 10^6/uL (4.30-6.10); WHITE BLOOD COUNT 11.7 10^3/uL (4.0-10.0)
[2019-03-30 06:16] LABS: BLOOD UREA NITROGEN 10 MG/DL (7-18); CALCIUM LEVEL 7.8 MG/DL (8.5-10.1); CARBON DIOXIDE LEVEL 26 MEQ/L (21-32); CHLORIDE LEVEL 101 MEQ/L (98-107); CREATININE FOR GFR 0.75 MG/DL (0.70-1.30); GLOMERULAR FILTRATION RATE > 60.0 (>60); GLUCOSE, FASTING 299 MG/DL (70-100); POTASSIUM SERUM 3.9 MEQ/L (3.5-5.1); SODIUM LEVEL 134 MEQ/L (136-145)
[2019-03-30 08:00] VITALS: BP 118/82
[2019-03-30] MEDS: DOCUSATE SODIUM 100 MG CAP PO SCH (09:00)
[2019-03-30] MEDS: GABAPENTIN 100 MG CAP PO SCH ×3 (09:09→20:10)
[2019-03-30] MEDS: NICOTINE 21MG/24HR 1 EA TRANSDERMAL TD SCH (09:10)
[2019-03-30] MEDS: HumaLOG INSULIN (NovoLOG) PER UNIT SC SCH ×4 (09:10→20:01)
--- NOTE | 2019-03-30 11:03 | RO ---
DATE OF PROCEDURE: 03/29/2019 PREOPERATIVE DIAGNOSES: POSTOPERATIVE DIAGNOSES: PROCEDURE PERFORMED: Debridement of muscle and tendinous structures plantar surface right foot. SURGEON: Mateus Jin DPM COMPOSITE BOND TECHNICIAN: None. ANESTHESIA: Local, monitored anesthesia care (MAC). IRRIGATION: Dilute gentamicin solution with low pressure pulsed lavage system. HEMOSTASIS: None. DRAINS UTILIZED: 1/2 inch iodoform gauze. DESCRIPTION OF PROCEDURE: On 03/29/2019, the patient was taken from his hospital room to the operating room and placed on the operating room table in a supine position. Following the induction of IV sedation and local and regional anesthesia, attention was directed to the patient's right foot. The area of necrotic muscle was then debrided with a sterile curette to good bleeding tissue. Plantar pressure revealed some purulence, therefore, the incision was lengthened approximately 4 cm in the proximal direction just distal to the plantar heel. Then, a small amount approximately 2-3 mm of purulent material was expressed. The wound was then flushed with low pressure pulsed lavage system. The wound was then packed along the wound margin and dry sterile dressing was applied. The patient's 2nd toe does have some bluish discoloration but the dorsal aspect is viable. We discussed with the patient monitoring his foot. He may require a surgical amputation of his 1st and 2nd toe if he has any osseous changes of the hallux or the 2nd toe necrosis anymore.
[2019-03-30 12:00] VITALS: BP 116/75
--- NOTE | 2019-03-30 13:38 | IPNPDOC ---
Date Seen The patient was seen on 03/30/19. Progress Note SUBJECTIVE: 38-year-old male with newly diagnosed diabetes mellitus, was admitted for osteomyelitis of the left toe, status post debridement/amputation. Patient reports improvement in pain, without any other complaints at this time. He denies any shortness of breath, chest pain, nausea, vomiting, abdominal pain or diarrhea. 03/29/19 Patient comfortable in the morning, schedule for further debridement of R foot today. He denies any SOB, CP, N/V/D or abdominal pain. 03/30/19 Patient underwent second debridement of his right foot yesterday, no issues overnight, comfortable in the morning, without any complaints at this time. He is tolerating his diet, denies shortness of breath, chest pain, nausea, vomiting, abdominal pain or diarrhea. 10 point review of system is negative except for above PHYSICAL EXAMINATION: VITAL SIGNS: Please see below. GENERAL: No distress HEENT: Normocephalic, atraumatic, moist mucous membranes NECK: Supple CARDIOVASCULAR EXAMINATION: S1, S2, no murmurs RESPIRATORY EXAMINATION: Clear to auscultation, no wheezing ABDOMINAL EXAMINATION: Soft, nontender, nondistended, positive bowel sounds EXTREMITIES: Dressing in place on both feet, clean, dry and intact SKIN: No rash NEUROLOGICAL EXAMINATION: Alert and oriented 3, no focal deficits PSYCHIATRIC EXAMINATION: Calm and cooperative LABORATORY DATA, IMAGING STUDIES, MICROBIOLOGY: Please see below. ASSESSMENT AND PLAN: 38-year-old male with newly diagnosed diabetes mellitus, was admitted for osteomyelitis, is status post debridement/amputation. PROBLEMS: 1. Left toe osteomyelitis: Status post amputation by Podiatry, cultures growing MSSA, group B strep, strep mitis, continue Ancef and pain control. R foot deep tissue infection w/ abscess - s/p debridement x1, scheduled for repeat debridement today. 2. Diabetes mellitus: Continue sliding scale coverage before meals and at bedtime. DVT prophylaxis: Heparin subcutaneous GI prophylaxis: Not needed VS, I&O, 24H, Fishbone Vital Signs/I&O Vital Signs Date Time Temp Pulse Resp B/P (MAP) Pulse Ox O2 Delivery O2 Flow Rate FiO2 03/30/19 12:00 97.5 79 19 116/75 (89) 96 Room Air 03/29/19 18:42 10 I&O- Last 24 Hours up to 6 AM 03/30/19 06:00 Intake Total 2340 ml Output Total 1225 ml Balance 1115 ml Laboratory Data 24H LABS Laboratory Tests 2 03/29/19 16:26: Bedside Glucose (Misc Panel) 154H 03/29/19 18:48: Bedside Glucose (Misc Panel) 174H 03/29/19 19:53: Bedside Glucose (Misc Panel) 207H 03/30/19 05:05: Nucleated Red Blood Cells % (auto) 0.0, Anion Gap 7L, Glomerular Filtration Rate > 60.0, Calcium Level 7.8L, C-Reactive Protein, Quantitative 15.90H 03/30/19 11:33: Bedside Glucose (Misc Panel) 171H CBC/BMP Laboratory Tests 03/30/19 05:05 Microbiology Microbiology 03/27/19 Wound Culture - Final, Complete Staphylococcus Aureus Strep Agalactiae Group B Streptococcus Mitis Corynebacterium Species 03/27/19 Wound Culture - Final, Complete Staphylococcus Aureus Strep Agalactiae Group B Streptococcus Mitis Corynebacterium Species 03/27/19 Blood Culture - Preliminary, Resulted No Growth after 72 hours. All specime... 03/27/19 Blood Culture - Preliminary, Resulted No Growth after 72 hours. All specime... 03/27/19 Wound Culture - Final, Resulted Strep Agalactiae Group B Staphylococcus Aureus Streptococcus Mitis 03/27/19 Anaerobic Culture, Resulted Pending 03/27/19 Wound Culture - Final, Complete Strep Agalactiae Group B Streptococcus Mitis 03/27/19 Anaerobic Culture - Final, Complete CHARITY AVILA MD Mar 30, 2019 13:37
[2019-03-30 16:00] VITALS: BP 119/85
[2019-03-30] MEDS: metFORMIN (GLUCOPHAGE) 500 MG TAB PO SCH (17:51)
[2019-03-30 20:00] VITALS: BP 138/83
[2019-03-30] MEDS: LEVEMIR (INSULIN DETEMIR) 1 UNITS/0.01ML SC SCH (20:12)
[2019-03-30 23:59] VITALS: BP 151/73
[2019-03-31] VITALS (10 sets, daily range): BP systolic 116–140; BP diastolic 80–89
--- NOTE | 2019-03-31 00:44 | IPN ---
DATE: 03/30/2019 Roger is doing well. He denies any complaint. No nausea, vomiting, diarrhea. No abdominal pain, fever, or chills. Patient went back to the operating room yesterday for further debridement of the right foot by Dr. Jin. The wound was examined. The packing was removed. There was some bloody discharge. The patient has minimal pain at the heel but no pain otherwise. He still has purulent discharge at the 2nd toe of the right foot. He has no chest pain or shortness of breath even though he is wheezing. Temperature is 95.9, pulse 82, respirations 18, blood pressure 119/85, oxygen saturation 98% on room air. Heart: Normal S1, S2. No murmurs, rubs, or gallops. Lungs: Few expiratory wheezes bilaterally. Good air entry. No rales or rhonchi. Abdomen: Soft, nontender. No hepatosplenomegaly. Extremities: No clubbing, cyanosis, or edema. Right foot has erythema on the dorsal aspect of the leg measuring about 4 x 2 cm, nontender. Right foot has an incision from the 2nd toe all the way down to the heel with exposed tendons. There is some necrotic skin around the incision, about 5 cm in the midfoot area. There is purulent discharge to the 2nd toe with purplish discoloration of the toe. He has +2 dorsalis pedis pulses. Left foot status post amputation of the 1st toe without residual infection. No cellulitis or abscess. LABS: White count 11.7, down from 28.5. Hemoglobin 12, hematocrit 37.8, platelets 295. Sodium 134, potassium 3.9, chloride 101, bicarbonate 26, BUN 10, creatinine 0.75, glucose 299, calcium 7.8, CRP 15.9. Wound cultures are positive for methicillin-sensitive Staphylococcus aureus (MSSA), group B streptococcus, and Streptococcus mitis both of the left foot and right foot. Both Streptococcus mitis are sensitive to penicillin. IMPRESSION: 1. Chronic osteomyelitis of the left toe status post amputation. Acute osteomyelitis of the right foot with complicated skin and soft tissue infection of the right foot with methicillin-sensitive Staphylococcus aureus (MSSA), Streptococcus mitis, and group B streptococcus. There is some concern of osteomyelitis of the 1st toe and possibly even the 2nd toe. Patient has clinically improved on current antibiotic. 2. New onset diabetes with glucose measuring between 154 and 225. On metformin 500 mg twice a day and insulin sliding scale. 3. Tobacco abuse. Patient doing well with nicotine patch, and have discussed with him smoking cessation. The patient is totally agreeable. PLAN: Continue intravenous (IV) cefazolin until next week. The patient may need further debridement and possibly a wound vacuum-assisted closure (VAC). I would not anticipate his discharge until Dr. Jin comes back. He may need further debridement of the 2nd toe.
[2019-03-31] MEDS: ceFAZolin SOD 2 GM in IV 1 EA IV SCH ×3 (04:05→20:17)
[2019-03-31] MEDS: HEPARIN SOD (PORCINE) 5000 UNITS/ML VIAL SC SCH ×3 (04:06→20:58)
[2019-03-31 05:28] LABS: HEMATOCRIT 37.2 % (42.0-52.0); HEMOGLOBIN 12.1 g/dl (13.5-17.5); MEAN CORPUSCULAR HEMOGLOBIN 28.7 pg (27.0-33.0); MEAN CORPUSCULAR HGB CONC 32.5 g/dl (32.0-36.5); MEAN CORPUSCULAR VOLUME 88.4 fl (80.0-96.0); PLATELET COUNT, AUTOMATED 365 10^3/uL (150-450); RED BLOOD COUNT 4.21 10^6/uL (4.30-6.10); WHITE BLOOD COUNT 12.4 10^3/uL (4.0-10.0)
[2019-03-31 05:50] LABS: BLOOD UREA NITROGEN 9 MG/DL (7-18); CALCIUM LEVEL 8.1 MG/DL (8.5-10.1); CARBON DIOXIDE LEVEL 28 MEQ/L (21-32); CHLORIDE LEVEL 101 MEQ/L (98-107); CREATININE FOR GFR 0.69 MG/DL (0.70-1.30); GLOMERULAR FILTRATION RATE > 60.0 (>60); GLUCOSE, FASTING 157 MG/DL (70-100); POTASSIUM SERUM 3.7 MEQ/L (3.5-5.1); SODIUM LEVEL 137 MEQ/L (136-145)
[2019-03-31] MEDS: HumaLOG INSULIN (NovoLOG) PER UNIT SC SCH ×4 (08:10→20:58)
[2019-03-31] MEDS: GABAPENTIN 100 MG CAP PO SCH ×3 (08:10→21:01)
[2019-03-31] MEDS: NICOTINE 21MG/24HR 1 EA TRANSDERMAL TD SCH (08:11)
[2019-03-31] MEDS: metFORMIN (GLUCOPHAGE) 500 MG TAB PO SCH ×2 (08:11→19:01)
[2019-03-31] MEDS: ACETAMINOPHEN TAB 650MG DOSE (2X325MG) PO PRN ×2 (09:20→22:13)
[2019-03-31] MEDS ORDERED: MIDAZOLAM INJ 2 MG/2 ML VIAL (J2250) As Ordered ONE (15:44)
[2019-03-31] MEDS ORDERED: LIDOCAINE 2% INJ 100 MG/5 ML SDV (FOR ANES.) As Ordered ONE (15:44)
[2019-03-31] MEDS ORDERED: dexameTHASONE 4 MG/ML 1ML VIAL (J1100) As Ordered ONE ×2 (15:44→15:46)
[2019-03-31] MEDS ORDERED: ONDANSETRON 4MG/2ML VIAL (J2405) As Ordered ONE ×2 (15:44→15:46)
[2019-03-31] MEDS ORDERED: fentaNYL 100 MCG/2 ML INJECTION (J3010) As Ordered ONE (15:44)
[2019-03-31] MEDS ORDERED: propofoL 500 MG/50 ML VIAL As Ordered ONE (15:44)
--- NOTE | 2019-03-31 17:00 | IPNPDOC ---
Date Seen The patient was seen on 03/31/19. Progress Note SUBJECTIVE: 38-year-old male with newly diagnosed diabetes mellitus, was admitted for osteomyelitis of the left toe, status post debridement/amputation. Patient reports improvement in pain, without any other complaints at this time. He denies any shortness of breath, chest pain, nausea, vomiting, abdominal pain or diarrhea. 03/29/19 Patient comfortable in the morning, schedule for further debridement of R foot today. He denies any SOB, CP, N/V/D or abdominal pain. 03/30/19 Patient underwent second debridement of his right foot yesterday, no issues overnight, comfortable in the morning, without any complaints at this time. He is tolerating his diet, denies shortness of breath, chest pain, nausea, vomiting, abdominal pain or diarrhea. 03/31/19 Patient comfortable in bed, pain well controlled, no additional complaints. He is tolerating his diet without difficulty, blood glucose better controlled after starting Metformin/Levemir yesterday. He denies any SOB, CP, N/V/D or abdominal pain. 10 point review of system is negative except for above PHYSICAL EXAMINATION: VITAL SIGNS: Please see below. GENERAL: No distress HEENT: Normocephalic, atraumatic, moist mucous membranes NECK: Supple CARDIOVASCULAR EXAMINATION: S1, S2, no murmurs RESPIRATORY EXAMINATION: Clear to auscultation, no wheezing ABDOMINAL EXAMINATION: Soft, nontender, nondistended, positive bowel sounds EXTREMITIES: Dressing in place on both feet, slight discoloration of toes in the R foot. SKIN: No rash NEUROLOGICAL EXAMINATION: Alert and oriented 3, no focal deficits PSYCHIATRIC EXAMINATION: Calm and cooperative LABORATORY DATA, IMAGING STUDIES, MICROBIOLOGY: Please see below. ASSESSMENT AND PLAN: 38-year-old male with newly diagnosed diabetes mellitus, was admitted for osteomyelitis, is status post debridement/amputation. PROBLEMS: 1. Left toe chronic osteomyelitis: Status post amputation by Podiatry, cultures growing MSSA, group B strep, strep mitis, continue Ancef and pain control. R foot acute osteomyelitis - s/p debridement x2, possible further debridement needed. 2. Diabetes mellitus: Continue sliding scale coverage before meals and at bedtime. Started Levemir 10 units QHS & Metformin 500 mg BID yesterday, blood glucose better controlled today. DVT prophylaxis: Heparin subcutaneous GI prophylaxis: Not needed VS, I&O, 24H, Fishbone Vital Signs/I&O Vital Signs Date Time Temp Pulse Resp B/P (MAP) Pulse Ox O2 Delivery O2 Flow Rate FiO2 03/31/19 12:00 97.8 89 16 118/82 (94) 95 Room Air 03/29/19 18:42 10 I&O- Last 24 Hours up to 6 AM 03/31/19 06:00 Intake Total 1860 ml Output Total 1200 ml Balance 660 ml Laboratory Data 24H LABS Laboratory Tests 2 03/30/19 17:24: Bedside Glucose (Misc Panel) 225H 03/30/19 20:00: Bedside Glucose (Misc Panel) 250H 03/31/19 04:59: Nucleated Red Blood Cells % (auto) 0.0, Anion Gap 8, Glomerular Filtration Rate > 60.0, Calcium Level 8.1L, C-Reactive Protein, Quantitative 10.50H 03/31/19 11:33: Bedside Glucose (Misc Panel) 119H CBC/BMP Laboratory Tests 03/31/19 04:59 Microbiology Microbiology 03/27/19 Wound Culture - Final, Complete Staphylococcus Aureus Strep Agalactiae Group B Streptococcus Mitis Corynebacterium Species 03/27/19 Wound Culture - Final, Complete Staphylococcus Aureus Strep Agalactiae Group B Streptococcus Mitis Corynebacterium Species 03/27/19 Blood Culture - Preliminary, Resulted No Growth after 72 hours. All specime... 03/27/19 Blood Culture - Preliminary, Resulted No Growth after 72 hours. All specime... 03/27/19 Wound Culture - Final, Resulted Strep Agalactiae Group B Staphylococcus Aureus Streptococcus Mitis 03/27/19 Anaerobic Culture, Resulted Pending 03/27/19 Wound Culture - Final, Complete Strep Agalactiae Group B Streptococcus Mitis 03/27/19 Anaerobic Culture - Final, Complete CHARITY AVILA MD Mar 31, 2019 17:00
[2019-03-31] MEDS ORDERED: LIDOCAINE 1% SDV INJ 30 ML VIAL As Ordered ONE (17:01)
[2019-03-31] MEDS ORDERED: BUPIVACAINE HCL 0.5% 30 ML VIAL As Ordered ONE (17:01)
--- NOTE | 2019-03-31 17:41 | CR ---
DATE OF CONSULTATION: 03/31/2019 REASON FOR CONSULTATION: Persistent foot drainage. Roger Cohen is a pleasant 38-year-old male who was admitted to the hospital with foot infections on both feet. He had been seen by Dr. Jin who did a left second toe amputation and extensive incision and drainage along the right foot. He has persistent drainage. Dr. Jin presently is unavailable, and I was asked by infectious disease to evaluate wound and see if further debridement was necessary. PAST MEDICAL HISTORY: Significant for newly diagnosed diabetes, obesity. PAST SURGICAL HISTORY: Includes left hallux amputation and right foot incision and drainage. SOCIAL HISTORY: Positive smoker. REVIEW OF SYSTEMS: Denies recent nausea, vomiting, fever, or chills. VITAL SIGNS: Vitals are reviewed; he has remained afebrile the last several days. LABS: Labs are reviewed. White blood cell count is 12.4, which is increased from 11.7 yesterday. His CRP is 10.7. LOWER EXTREMITY EXAMINATION: The right foot is examined. The plantar incision is without significant drainage or necrosis. There is a stab incision on the dorsal aspect of the right second toe, which has persisting purulent drainage with expression, and there is significant erythema along the dorsal and lateral aspect of the foot. ASSESSMENT: A 38-year-old male with right foot abscess. PLAN: Will plan to repeat incision and drainage to the right foot tonight. He is to be nothing by mouth. Continue antibiotics as recommended by infectious disease.
[2019-03-31] MEDS ORDERED: propofoL 200 MG/20 ML VIAL As Ordered ONE (17:52)
[2019-03-31] MEDS ORDERED: ONDANSETRON 4MG/2ML VIAL (J2405) IV PRN (18:45)
[2019-03-31] MEDS ORDERED: fentaNYL 100 MCG/2 ML INJECTION (J3010) IV PRN (18:45)
[2019-03-31] MEDS ORDERED: PERCOCET 5MG/325MG TAB PO PRN (18:45)
[2019-03-31] MEDS ORDERED: METOCLOPRAMIDE INJ 10MG/2ML VIAL (J2765) IV PRN (18:45)
[2019-03-31] MEDS ORDERED: MEPERIDINE INJ 25 MG/ML VIAL (J2175) IV PRN (18:45)
[2019-03-31] MEDS ORDERED: LR 1,000 ML IV SCH (18:45)
[2019-03-31] MEDS: LEVEMIR (INSULIN DETEMIR) 1 UNITS/0.01ML SC SCH (20:58)
--- NOTE | 2019-03-31 22:10 | RO ---
DATE OF PROCEDURE: 03/31/2019 PREPROCEDURE DIAGNOSIS: Right foot ulceration and infection. POSTPROCEDURE DIAGNOSIS: Right foot ulceration and infection. PROCEDURE: Right foot incision and drainage and excisional wound debridement including subcutaneous tissue and tendon. SURGEON: Simon Cooper DPM MEDICAL INSURANCE BILLER: None. ANESTHESIA: Monitored anesthesia care with preoperative injection of 20 mL of a 1:1 mixture of 1% lidocaine plain and 0.50% Marcaine plain. ESTIMATED BLOOD LOSS: 20 mL. MATERIALS: 3-0 nylon COMPLICATIONS: None. CONDITION: Stable. Roger Cohen is a 38-year-old male who was admitted with foot infection on both feet. He had incision and drainage by Dr. Jin on his right foot two days ago. He was reevaluated by infectious disease who noted worsening redness, persisting elevation of his white blood cell count, and persisting purulence coming from the wound. I was asked to see the patient and evaluate if further surgical intervention was required. The patient was seen preoperatively, and decision was made to bring him to the operating room for repeat incision and drainage. The patient's side and site were identified and marked in the preoperative holding area. Consent was reviewed and obtained. All risks, complications, and alternatives to the procedure were explained to the patient in detail and all questions were answered. DESCRIPTION OF PROCEDURE: The patient was brought to the operating room, placed on the operating room table in supine position, monitored anesthesia care was delivered by the anesthesia team. Preoperative injection of 20 mL of a 1:1 mixture of 1% lidocaine plain and 0.50% Marcaine plain were injected into the right ankle. Right foot was prepped and draped in the normal sterile fashion. A tourniquet was applied to the right ankle and was not used during the procedure. The foot was inspected. There was duskiness noted to the right second toe. There was some capillary refill available to this toe. There was purulent drainage noted at the dorsal stab incision, as well as the distal aspect of the plantar incision. An S-shaped dorsal incision was made along the tracking plane and purulent drainage was noted to be expressed, most notably around the second toe. On the plantar aspect, there was some purulent drainage noted at the distal aspect of the wound. There was no purulent drainage or necrosis noted at the proximal aspect. Some of the necrotic tissue, subcutaneous tissue and tendon were removed using rongeur, and the site was irrigated with 3000 mL of saline via pulse lavage. No further purulence was noted to be expressed. #3-0 nylon was used to loosely reapproximate the proximal aspect of the plantar wound and the dorsal wounds to prevent further wound retraction. The wound was packed with saline-soaked gauze and dry sterile dressing. The patient was brought to post-anesthesia care unit (PACU), vital signs stable, neurovascular status intact. He will be readmitted to the floor for continued antibiotics and monitoring. Discussed there will be a strong possibility he will require amputation of second toe if the blood supply does not improve in the next few days. He may also be at risk for losing the hallux as well. For now, will reinstate dressing changes, continue antibiotics and monitor foot with further surgical plans pending improvement. BETSY
[2019-04-01 04:00] VITALS: BP 123/81
[2019-04-01] MEDS: ceFAZolin SOD 2 GM in IV 1 EA IV SCH ×3 (04:15→20:38)
[2019-04-01] MEDS: HEPARIN SOD (PORCINE) 5000 UNITS/ML VIAL SC SCH ×3 (05:32→22:08)
[2019-04-01 06:20] LABS: HEMATOCRIT 39.6 % (42.0-52.0); HEMOGLOBIN 12.5 g/dl (13.5-17.5); MEAN CORPUSCULAR HEMOGLOBIN 28.2 pg (27.0-33.0); MEAN CORPUSCULAR HGB CONC 31.6 g/dl (32.0-36.5); MEAN CORPUSCULAR VOLUME 89.4 fl (80.0-96.0); PLATELET COUNT, AUTOMATED 382 10^3/uL (150-450); RED BLOOD COUNT 4.43 10^6/uL (4.30-6.10); WHITE BLOOD COUNT 13.7 10^3/uL (4.0-10.0)
[2019-04-01 06:51] LABS: BLOOD UREA NITROGEN 8 MG/DL (7-18); CALCIUM LEVEL 8.4 MG/DL (8.5-10.1); CARBON DIOXIDE LEVEL 28 MEQ/L (21-32); CHLORIDE LEVEL 98 MEQ/L (98-107); CREATININE FOR GFR 0.64 MG/DL (0.70-1.30); GLOMERULAR FILTRATION RATE > 60.0 (>60); GLUCOSE, FASTING 155 MG/DL (70-100); POTASSIUM SERUM 4.2 MEQ/L (3.5-5.1); SODIUM LEVEL 134 MEQ/L (136-145)
[2019-04-01 08:00] VITALS: BP 119/81
[2019-04-01] MEDS: metFORMIN (GLUCOPHAGE) 500 MG TAB PO SCH ×2 (09:14→17:41)
[2019-04-01] MEDS: GABAPENTIN 100 MG CAP PO SCH ×3 (09:14→20:38)
[2019-04-01] MEDS: NICOTINE 21MG/24HR 1 EA TRANSDERMAL TD SCH (09:15)
[2019-04-01] MEDS: HumaLOG INSULIN (NovoLOG) PER UNIT SC SCH ×4 (09:16→20:51)
[2019-04-01 12:00] VITALS: BP 121/82
--- NOTE | 2019-04-01 15:10 | IPNPDOC ---
Date Seen The patient was seen on 04/01/19. Progress Note SUBJECTIVE: 38-year-old male with newly diagnosed diabetes mellitus, was admitted for osteomyelitis of the left toe, status post debridement/amputation. Patient reports improvement in pain, without any other complaints at this time. He denies any shortness of breath, chest pain, nausea, vomiting, abdominal pain or diarrhea. 03/29/19 Patient comfortable in the morning, schedule for further debridement of R foot today. He denies any SOB, CP, N/V/D or abdominal pain. 03/30/19 Patient underwent second debridement of his right foot yesterday, no issues overnight, comfortable in the morning, without any complaints at this time. He is tolerating his diet, denies shortness of breath, chest pain, nausea, vomiting, abdominal pain or diarrhea. 03/31/19 Patient comfortable in bed, pain well controlled, no additional complaints. He is tolerating his diet without difficulty, blood glucose better controlled after starting Metformin/Levemir yesterday. He denies any SOB, CP, N/V/D or abdominal pain. 03/31/19 Patient underwent a third incision and drainage of the right foot yesterday with episode of fever overnight, seen in the morning, without any complaints, denies shortness of breath, chest pain, nausea, vomiting, diarrhea, abdominal pain, or constipation. 10 point review of system is negative except for above PHYSICAL EXAMINATION: VITAL SIGNS: Please see below. GENERAL: No distress HEENT: Normocephalic, atraumatic, moist mucous membranes NECK: Supple CARDIOVASCULAR EXAMINATION: S1, S2, no murmurs RESPIRATORY EXAMINATION: Clear to auscultation, no wheezing ABDOMINAL EXAMINATION: Soft, nontender, nondistended, positive bowel sounds EXTREMITIES: Dressing in place on both feet, slight discoloration of toes in the R foot. SKIN: No rash NEUROLOGICAL EXAMINATION: Alert and oriented 3, no focal deficits PSYCHIATRIC EXAMINATION: Calm and cooperative LABORATORY DATA, IMAGING STUDIES, MICROBIOLOGY: Please see below. ASSESSMENT AND PLAN: 38-year-old male with newly diagnosed diabetes mellitus, was admitted for osteomyelitis, is status post debridement/amputation. PROBLEMS: 1. Left toe chronic osteomyelitis: Status post amputation by Podiatry, cultures growing MSSA, group B strep, strep mitis, continue Ancef and pain control. R foot acute osteomyelitis - s/p debridement x3, febrile overnight, possibly procedure related, if fever persists then I'll consider escalation of antibiotics and repeat cultures. 2. Diabetes mellitus: Continue sliding scale coverage before meals and at bedtime. Decreased Levemir to 5 units QHS, continue Metformin 500 mg BID. DVT prophylaxis: Heparin subcutaneous GI prophylaxis: Not needed VS, I&O, 24H, Fishbone Vital Signs/I&O Vital Signs Date Time Temp Pulse Resp B/P (MAP) Pulse Ox O2 Delivery O2 Flow Rate FiO2 04/01/19 12:00 98.6 83 18 121/82 (95) 97 Room Air 03/29/19 18:42 10 I&O- Last 24 Hours up to 6 AM 04/01/19 06:00 Intake Total 1950 ml Output Total 1370 ml Balance 580 ml Laboratory Data 24H LABS Laboratory Tests 2 03/31/19 18:15: Bedside Glucose (Misc Panel) 119H 03/31/19 19:02: Bedside Glucose (Misc Panel) 163H 03/31/19 20:56: Bedside Glucose (Misc Panel) 185H 04/01/19 06:07: Nucleated Red Blood Cells % (auto) 0.0, Anion Gap 8, Glomerular Filtration Rate > 60.0, Calcium Level 8.4L, C-Reactive Protein, Quantitative 11.70H 04/01/19 11:24: Bedside Glucose (Misc Panel) 136H CBC/BMP Laboratory Tests 04/01/19 06:07 Microbiology Microbiology 03/27/19 Wound Culture - Final, Complete Staphylococcus Aureus Strep Agalactiae Group B Streptococcus Mitis Corynebacterium Species 03/27/19 Wound Culture - Final, Complete Staphylococcus Aureus Strep Agalactiae Group B Streptococcus Mitis Corynebacterium Species 03/27/19 Blood Culture - Final, Complete NO GROWTH AFTER 5 DAYS 03/27/19 Blood Culture - Final, Complete NO GROWTH AFTER 5 DAYS 03/27/19 Wound Culture - Final, Resulted Strep Agalactiae Group B Staphylococcus Aureus Streptococcus Mitis 03/27/19 Anaerobic Culture, Resulted Pending 03/27/19 Wound Culture - Final, Complete Strep Agalactiae Group B Streptococcus Mitis 03/27/19 Anaerobic Culture - Final, Complete CHARITY AVILA MD Apr 01, 2019 15:10
[2019-04-01 16:00] VITALS: BP 108/64
--- NOTE | 2019-04-01 18:00 | IPN ---
DATE OF SERVICE: 04/01/2019 Patient seen and examined. Denies overnight complaints. States no significant pain in his foot. Vital signs are reviewed. Maximal temperature 100.4, currently 98.4. Labs are reviewed. White blood cell count is 13.7, CRP is 11.7. Lower extremity examination: Erythema is reduced; however, there still is erythema to the dorsal aspect of the foot. The wounds are inspected. No purulent drainage is noted. There is some duskiness to the right 2nd toe, which is approximately the same as it was yesterday. There still remains some capillary refill. ASSESSMENT: A 38-year-old male status post right foot incision and drainage. PLAN: Continue current wound dressings. Discussed that he may ultimately require 2nd toe amputation if it does not reperfuse with diminishing of the infection. Dr. Jin will be back Wednesday. I am planing to sign off unless any worsening of the foot happens between now and Wednesday. Please re-consult as needed.
[2019-04-01] MEDS ORDERED: LEVEMIR (INSULIN DETEMIR) 1 UNITS/0.01ML SC SCH (21:00)
[2019-04-01 22:00] VITALS: BP 120/84
[2019-04-02] MEDS: ceFAZolin SOD 2 GM in IV 1 EA IV SCH ×3 (04:36→20:02)
[2019-04-02] MEDS: HEPARIN SOD (PORCINE) 5000 UNITS/ML VIAL SC SCH ×4 (05:43→21:21)
[2019-04-02 06:00] VITALS: BP 118/83
[2019-04-02] MEDS: GABAPENTIN 100 MG CAP PO SCH ×3 (08:38→21:22)
[2019-04-02] MEDS: HumaLOG INSULIN (NovoLOG) PER UNIT SC SCH ×4 (08:38→21:00)
[2019-04-02] MEDS: NICOTINE 21MG/24HR 1 EA TRANSDERMAL TD SCH (08:38)
[2019-04-02] MEDS: metFORMIN (GLUCOPHAGE) 500 MG TAB PO SCH ×2 (08:38→17:24)
--- NOTE | 2019-04-02 11:26 | IPNPDOC ---
Date Seen The patient was seen on 04/02/19. Progress Note SUBJECTIVE: 38-year-old male with newly diagnosed diabetes mellitus, was admitted for osteomyelitis of the left toe, status post debridement/amputation. Patient reports improvement in pain, without any other complaints at this time. He denies any shortness of breath, chest pain, nausea, vomiting, abdominal pain or diarrhea. 03/29/19 Patient comfortable in the morning, schedule for further debridement of R foot today. He denies any SOB, CP, N/V/D or abdominal pain. 03/30/19 Patient underwent second debridement of his right foot yesterday, no issues overnight, comfortable in the morning, without any complaints at this time. He is tolerating his diet, denies shortness of breath, chest pain, nausea, vomiting, abdominal pain or diarrhea. 03/31/19 Patient comfortable in bed, pain well controlled, no additional complaints. He is tolerating his diet without difficulty, blood glucose better controlled after starting Metformin/Levemir yesterday. He denies any SOB, CP, N/V/D or abdominal pain. 04/01/19 Patient underwent a third incision and drainage of the right foot yesterday with episode of fever overnight, seen in the morning, without any complaints, denies shortness of breath, chest pain, nausea, vomiting, diarrhea, abdominal pain, or constipation. 04/02/19 Patient comfortable in the morning, no acute events overnight, no changes since yesterday, has no complaints at this time. He denies any shortness of breath, c hest pain, nausea, vomiting, abdominal pain or diarrhea. 10 point review of system is negative except for above PHYSICAL EXAMINATION: VITAL SIGNS: Please see below. GENERAL: No distress HEENT: Normocephalic, atraumatic, moist mucous membranes NECK: Supple CARDIOVASCULAR EXAMINATION: S1, S2, no murmurs RESPIRATORY EXAMINATION: Clear to auscultation, no wheezing ABDOMINAL EXAMINATION: Soft, nontender, nondistended, positive bowel sounds EXTREMITIES: Dressing in place on both feet, slight discoloration of toes in the R foot. SKIN: No rash NEUROLOGICAL EXAMINATION: Alert and oriented 3, no focal deficits PSYCHIATRIC EXAMINATION: Calm and cooperative LABORATORY DATA, IMAGING STUDIES, MICROBIOLOGY: Please see below. ASSESSMENT AND PLAN: 38-year-old male with newly diagnosed diabetes mellitus, was admitted for osteomyelitis, is status post debridement/amputation. PROBLEMS: 1. Left toe chronic osteomyelitis: Status post amputation by Podiatry, cultures growing MSSA, group B strep, strep mitis, continue Ancef and pain control. R foot acute osteomyelitis - s/p debridement x3, further debridement as per podiatry, will await further recommendations, continue antibiotics. 2. Diabetes mellitus: Continue sliding scale coverage before meals and at bedtime. continue Metformin 500 mg BID, discontinued Levemir as fingersticks have been well-controlled without it.. DVT prophylaxis: Heparin subcutaneous GI prophylaxis: Not needed VS, I&O, 24H, Fishbone Vital Signs/I&O Vital Signs Date Time Temp Pulse Resp B/P (MAP) Pulse Ox O2 Delivery O2 Flow Rate FiO2 04/02/19 06:00 98.4 83 15 118/83 (95) 96 Room Air 03/29/19 18:42 10 I&O- Last 24 Hours up to 6 AM 04/02/19 06:00 Intake Total 530 ml Output Total 1120 ml Balance -590 ml Laboratory Data 24H LABS Laboratory Tests 2 04/01/19 16:37: Bedside Glucose (Misc Panel) 132H 04/01/19 20:49: Bedside Glucose (Misc Panel) 179H 04/02/19 06:14: Bedside Glucose (Misc Panel) 137H Microbiology Microbiology 03/27/19 Wound Culture - Final, Complete Staphylococcus Aureus Strep Agalactiae Group B Streptococcus Mitis Corynebacterium Species 03/27/19 Wound Culture - Final, Complete Staphylococcus Aureus Strep Agalactiae Group B Streptococcus Mitis Corynebacterium Species 03/27/19 Blood Culture - Final, Complete NO GROWTH AFTER 5 DAYS 03/27/19 Blood Culture - Final, Complete NO GROWTH AFTER 5 DAYS 03/27/19 Wound Culture - Final, Complete Strep Agalactiae Group B Staphylococcus Aureus Streptococcus Mitis 03/27/19 Anaerobic Culture - Final, Complete Eubacterium Lentum Prevotella Intermedia 03/27/19 Wound Culture - Final, Complete Strep Agalactiae Group B Streptococcus Mitis 03/27/19 Anaerobic Culture - Final, Complete CHARITY AVILA MD Apr 02, 2019 11:26
[2019-04-02 14:00] VITALS: BP 123/82
[2019-04-02 22:00] VITALS: BP 125/83
[2019-04-03] MEDS: ceFAZolin SOD 2 GM in IV 1 EA IV SCH ×3 (03:27→19:42)
[2019-04-03] MEDS: HEPARIN SOD (PORCINE) 5000 UNITS/ML VIAL SC SCH ×3 (05:24→22:01)
[2019-04-03 06:00] VITALS: BP 120/80
[2019-04-03 06:14] LABS: HEMATOCRIT 39.2 % (42.0-52.0); HEMOGLOBIN 12.6 g/dl (13.5-17.5); MEAN CORPUSCULAR HEMOGLOBIN 28.9 pg (27.0-33.0); MEAN CORPUSCULAR HGB CONC 32.1 g/dl (32.0-36.5); MEAN CORPUSCULAR VOLUME 89.9 fl (80.0-96.0); PLATELET COUNT, AUTOMATED 445 10^3/uL (150-450); RED BLOOD COUNT 4.36 10^6/uL (4.30-6.10); WHITE BLOOD COUNT 10.2 10^3/uL (4.0-10.0)
[2019-04-03] MEDS: HumaLOG INSULIN (NovoLOG) PER UNIT SC SCH ×4 (09:01→21:00)
[2019-04-03] MEDS: GABAPENTIN 100 MG CAP PO SCH ×3 (09:02→22:00)
[2019-04-03] MEDS: NICOTINE 21MG/24HR 1 EA TRANSDERMAL TD SCH (09:02)
[2019-04-03] MEDS: metFORMIN (GLUCOPHAGE) 500 MG TAB PO SCH ×2 (09:02→18:05)
[2019-04-03 11:16] LABS: BLOOD UREA NITROGEN 10 MG/DL (7-18); C REACTIVE PROTEIN QUANTITATIV 6.86 MG/DL (0.00-0.30); CALCIUM LEVEL 8.8 MG/DL (8.5-10.1); CARBON DIOXIDE LEVEL 29 MEQ/L (21-32); CHLORIDE LEVEL 101 MEQ/L (98-107); CREATININE FOR GFR 0.72 MG/DL (0.70-1.30); GLOMERULAR FILTRATION RATE > 60.0 (>60); GLUCOSE, FASTING 121 MG/DL (70-100); PHOSPHORUS LEVEL 4.4 MG/DL (2.5-4.9); POTASSIUM SERUM 4.3 MEQ/L (3.5-5.1); SODIUM LEVEL 136 MEQ/L (136-145)
--- NOTE | 2019-04-03 11:28 | IPNPDOC ---
Subjective Date Seen The patient was seen on 04/03/19. Subjective Chief Complaint/HPI Comfortable offers no new complaints, awaiting podiatry follow-up General: Denies: ROS Unobtainable, Chills, Night Sweats, Fatigue, Malaise, Normal Appetite, Other Symptoms Pulmonary: Denies: Dyspnea, Cough, Pleuritic Chest Pain, Other Symptoms Cardiovascular: Denies: Chest Pain, Palpitations, Orthopnea, Paroxysmal Noc. Dyspnea, Edema, Lt Headedness, Other Symptoms Gastrointestinal: Denies: Nausea, Vomiting, Abdominal Pain, Diarrhea, Constipation, Melena, Hematochezia, Other Symptoms Musculoskeletal: Denies: Neck Pain, Back Pain, Shoulder Pain, Arm Pain, Hand Pain, Leg Pain, Foot Pain, Joint Pain, Muscle Pain, Spasms, Other Symptoms Neurological: Denies: Weakness, Numbness, Incoordination, Change in speech, Confusion, Seizures, Other Symptoms Objective Physical Examination General Exam: Positive: Alert, Cooperative Neck Exam: Positive: Supple Chest Exam: Positive: Clear to auscultation, Normal air movement Heart Exam: Positive: Rate Normal, Normal S1 Abdomen Exam: Positive: Normal bowel sounds, Soft Extremity Exam: Positive: Normal pulses Skin Exam: Positive: Nl turgor and temperature Assessment /Plan Problems (1) Osteomyelitis Status: Acute Problem Text: Left toe chronic osteomyelitis: Status post amputation by Podiatry, cultures growing MSSA, group B strep, strep mitis, continue Ancef and pain control. R foot acute osteomyelitis - s/p debridement x3, further debridement as per podiatry, will await further recommendations, continue antibiotics. A.m. labs (2) Newly diagnosed diabetes Status: Acute Problem Text: Continue sliding scale coverage before meals and at bedtime. continue Metformin 500 mg BID, discontinued Levemir as fingersticks have been well-controlled without it.. Plan/VTE VTE Prophylaxis Ordered?: Yes VS, I&O, 24H, Fishbone Vital Signs/I&O Vital Signs Date Time Temp Pulse Resp B/P (MAP) Pulse Ox O2 Delivery O2 Flow Rate FiO2 04/03/19 06:00 98.5 85 16 120/80 (93) 98 Room Air 03/29/19 18:42 10 I&O- Last 24 Hours up to 6 AM 04/03/19 06:00 Intake Total 1260 ml Output Total 750 ml Balance 510 ml Laboratory Data 24H LABS Laboratory Tests 2 04/02/19 11:32: Bedside Glucose (Misc Panel) 134H 04/02/19 16:36: Bedside Glucose (Misc Panel) 219H 04/02/19 20:56: Bedside Glucose (Misc Panel) 181H 04/03/19 05:51: Nucleated Red Blood Cells % (auto) 0.0 04/03/19 08:57: Bedside Glucose (Misc Panel) 155H 04/03/19 10:29: Anion Gap 6L, Glomerular Filtration Rate > 60.0, Calcium Level 8.8, Phosphorus Level 4.4, Magnesium Level 2.0, C-Reactive Protein, Quantitative 6.86H CBC/BMP Laboratory Tests 04/03/19 05:51 04/03/19 10:29 Microbiology Microbiology 03/27/19 Wound Culture - Final, Complete Staphylococcus Aureus Strep Agalactiae Group B Streptococcus Mitis Corynebacterium Species 03/27/19 Wound Culture - Final, Complete Staphylococcus Aureus Strep Agalactiae Group B Streptococcus Mitis Corynebacterium Species 03/27/19 Blood Culture - Final, Complete NO GROWTH AFTER 5 DAYS 03/27/19 Blood Culture - Final, Complete NO GROWTH AFTER 5 DAYS 03/27/19 Wound Culture - Final, Complete Strep Agalactiae Group B Staphylococcus Aureus Streptococcus Mitis 03/27/19 Anaerobic Culture - Final, Complete Eubacterium Lentum Prevotella Intermedia 03/27/19 Wound Culture - Final, Complete Strep Agalactiae Group B Streptococcus Mitis 03/27/19 Anaerobic Culture - Final, Complete HELLEN MILLER MD Apr 03, 2019 11:28
[2019-04-03 14:00] VITALS: BP 118/78
[2019-04-03 22:00] VITALS: BP 127/86
[2019-04-03] MEDS: metroNIDAZOLE (FLAGYL) 500 MG TAB PO SCH (22:00)
--- NOTE | 2019-04-04 00:16 | IPN ---
DATE: 04/03/2019 Roger is doing well. He has no complaints. No fever or chills. No nausea, vomiting or diarrhea. No abdominal pain. Tolerating antibiotics well. He was taken to the operating room (OR) back on Wednesday by Dr. Cooper for further incision and drainage (I and D) with marked improvement. Pain in his foot has mostly resolved except for the heel where the incision is. His second toe is purplish-bluish in color. He has had no fever or chills. PHYSICAL EXAMINATION: Temperature is 97.3, pulse 88, respirations 16, blood pressure 118/78, oxygen saturation (O2 sat) 97% on room air. His last temperature was on April 01, 2019, up to 100.7. Heart: Normal S1, S2. No murmurs, rubs or gallops. Lungs are clear. No wheezes, rales or rhonchi. Abdomen is soft, nontender, no hepatosplenomegaly. Extremities: No edema. Right foot cellulitis has resolved. There is a very slight erythematous lesion on the [place] measuring about 2 cm, nontender to touch. Second toe on the right foot is dark blue to necrotic color, nontender. There is an incision on the dorsal aspect of the foot measuring about 2 cm. No purulent discharge. The cellulitis on the dorsal aspect of the foot has practically resolved. The incision on the plantar aspect of the foot measures about 15 cm. Tendons are exposed, but there is no purulence. There is some macerated skin on the border of the incision in the center of foot that is stable. Left big toe amputation, site is clean with no purulence, no discharge, sutures in place. LABORATORY: White count is 10.2, hemoglobin 12.6, hematocrit 39.2, platelets 445. Sodium 136, potassium 4.3, chloride 101, bicarbonate 21, BUN 10, creatinine 0.72, glucose 121, calcium 8.8, phosphorus 4.4, magnesium 2, CRP 6.86 down from 29.8 on admission. Wound cultures were positive for methicillin-sensitive Staphylococcus aureus (MSSA), Group B strep and Streptococcus mitis. Also, one culture had Eubacterium, Prevotella. MEDICATIONS: IV cefazolin 2 grams every 8 hours. IMPRESSION: 1. Polymicrobial deep tissue infection of the right foot, status post two incision and drainage, improving, on IV cefazolin due to the fact that one culture had Prevotella, which could be resistant to gram-positive coverage. It is gram-negative anaerobe. I will add oral Flagyl. 2. Second toe on the right foot ischemic changes with skin necrosis. Will need amputation. 3. New onset insulin-dependent diabetes. Glucose has been ranging between 133 and 219. 4. History of tobacco abuse. Patient again encouraged to remain abstinent of smoking. His wheezing has resolved and patient promises he will not go back to smoking. PLAN: Dr. Jin will probably be taking him back to the operating room at some point for possibly amputation of the second toe, maybe closure of the wound. I would add oral Flagyl for anaerobic coverage. Continue IV cefazolin until ready for discharge.
--- NOTE | 2019-04-04 01:14 | REP ---
Clinical: Cellulitis. Technique: AP, lateral views of the right foot. Comparison: None. Findings: The osseous structures demonstrate mild degenerative changes. No evidence for acute fracture or dislocation. No significant periosteal reaction or destructive changes are definitively appreciated. Mild overlying soft tissue swelling is suspected and consistent with the given history of cellulitis. No subcutaneous emphysema. No foreign body. Impression: Degenerative changes. Soft-tissue swelling. While no definite evidence for osteomyelitis is appreciated, radiographic evaluation is nonspecific or sensitive osteomyelitis. If concern continues, MRI should be considered. Electronically Signed by Bob Jean Baptiste MD 04/04/2019 01:05 A
[2019-04-04] MEDS: ceFAZolin SOD 2 GM in IV 1 EA IV SCH ×3 (04:19→21:21)
[2019-04-04] MEDS: HEPARIN SOD (PORCINE) 5000 UNITS/ML VIAL SC SCH ×3 (05:20→21:21)
[2019-04-04] MEDS: metroNIDAZOLE (FLAGYL) 500 MG TAB PO SCH ×3 (05:20→21:20)
[2019-04-04 06:00] VITALS: BP 153/59
[2019-04-04 06:17] LABS: BASO # 0.1 10^3/uL (0.0-0.2); BASO % 0.7 % (0.0-1.0); EOS # 0.2 10^3/uL (0.0-0.5); EOS % 2.1 % (0.0-3.0); HEMATOCRIT 38.8 % (42.0-52.0); HEMOGLOBIN 12.7 g/dl (13.5-17.5); LYMPH % 24.1 % (24.0-44.0); MEAN CORPUSCULAR HGB CONC 32.7 g/dl (32.0-36.5); MEAN CORPUSCULAR VOLUME 88.6 fl (80.0-96.0); MONO # 0.7 10^3/uL (0.0-0.8); MONO % 8.7 % (0.0-5.0); NEUTROPHILS # 5.2 10^3/uL (1.5-8.5); NEUTROPHILS % 63.3 % (36.0-66.0); PLATELET COUNT, AUTOMATED 438 10^3/uL (150-450); RED BLOOD COUNT 4.38 10^6/uL (4.30-6.10); WHITE BLOOD COUNT 8.2 10^3/uL (4.0-10.0)
[2019-04-04 06:44] LABS: ALBUMIN 2.2 GM/DL (3.2-5.2); ALT/SGPT 58 U/L (12-78); BILIRUBIN,TOTAL 0.5 MG/DL (0.2-1.0); BLOOD UREA NITROGEN 8 MG/DL (7-18); CALCIUM LEVEL 8.8 MG/DL (8.5-10.1); CARBON DIOXIDE LEVEL 24 MEQ/L (21-32); CHLORIDE LEVEL 101 MEQ/L (98-107); CREATININE FOR GFR 0.72 MG/DL (0.70-1.30); GLOMERULAR FILTRATION RATE > 60.0 (>60); GLUCOSE, FASTING 186 MG/DL (70-100); POTASSIUM SERUM 3.9 MEQ/L (3.5-5.1); SODIUM LEVEL 133 MEQ/L (136-145)
[2019-04-04] MEDS: metFORMIN (GLUCOPHAGE) 500 MG TAB PO SCH ×2 (07:33→17:18)
[2019-04-04] MEDS: HumaLOG INSULIN (NovoLOG) PER UNIT SC SCH ×4 (07:33→21:00)
[2019-04-04] MEDS: GABAPENTIN 100 MG CAP PO SCH ×3 (08:23→21:21)
[2019-04-04] MEDS: NICOTINE 21MG/24HR 1 EA TRANSDERMAL TD SCH (08:23)
--- NOTE | 2019-04-04 10:32 | IPNPDOC ---
Subjective Date Seen The patient was seen on 04/04/19. Subjective Chief Complaint/HPI Patient is comfortable in no distress. Awaiting podiatry follow-up General: Denies: ROS Unobtainable, Chills, Night Sweats, Fatigue, Malaise, Normal Appetite, Other Symptoms Skin: Denies: Rash, Lesions, Jaundice, Bruising, Itching, Dry, Breakdown, Nail Changes, Other Pulmonary: Denies: Dyspnea, Cough, Pleuritic Chest Pain, Other Symptoms Cardiovascular: Denies: Chest Pain, Palpitations, Orthopnea, Paroxysmal Noc. Dyspnea, Edema, Lt Headedness, Other Symptoms Gastrointestinal: Denies: Nausea, Vomiting, Abdominal Pain, Diarrhea, Co nstipation, Melena, Hematochezia, Other Symptoms Musculoskeletal: Denies: Neck Pain, Back Pain, Shoulder Pain, Arm Pain, Hand Pain, Leg Pain, Foot Pain, Joint Pain, Muscle Pain, Spasms, Other Symptoms Neurological: Denies: Weakness, Numbness, Incoordination, Change in speech, Confusion, Seizures, Other Symptoms Objective Physical Examination Neck Exam: Positive: Supple Chest Exam: Positive: Clear to auscultation, Normal air movement Heart Exam: Positive: Rate Normal, Normal S1 Abdomen Exam: Positive: Normal bowel sounds, Soft Extremity Exam: Positive: Normal pulses Skin Exam: Positive: Nl turgor and temperature Assessment /Plan Problems (1) Osteomyelitis Status: Acute Problem Text: Left toe chronic osteomyelitis: Status post amputation by Podiatry, cultures growing MSSA, group B strep, strep mitis, continue Ancef and pain control. R foot acute osteomyelitis - s/p debridement x3, further debridement as per podiatry, Awaiting follow-up from podiatry for possible further surgery or debridement on right foot Continue present antibiotics, ID follow-up appreciated. Flagyl has been added for gram-negative anaerobes (2) Newly diagnosed diabetes Status: Acute Problem Text: Continue sliding scale coverage before meals and at bedtime. continue Metformin 500 mg BID, discontinued Levemir as fingersticks have been well-controlled without it.. Plan/VTE VTE Prophylaxis Ordered?: Yes VS, I&O, 24H, Fishbone Vital Signs/I&O Vital Signs Date Time Temp Pulse Resp B/P (MAP) Pulse Ox O2 Delivery O2 Flow Rate FiO2 04/04/19 06:00 96.0 78 20 153/59 (90) 98 04/03/19 14:00 Room Air 03/29/19 18:42 10 I&O- Last 24 Hours up to 6 AM 04/04/19 06:00 Intake Total 2390 ml Output Total 800 ml Balance 1590 ml Laboratory Data 24H LABS Laboratory Tests 2 04/03/19 11:38: Bedside Glucose (Misc Panel) 133H 04/03/19 16:24: Bedside Glucose (Misc Panel) 171H 04/03/19 20:46: Bedside Glucose (Misc Panel) 162H 04/04/19 06:00: Immature Granulocyte % (Auto) 1.1, Neutrophils (%) (Auto) 63.3, Lymphocytes (%) (Auto) 24.1, Monocytes (%) (Auto) 8.7H, Eosinophils (%) (Auto) 2.1, Basophils (%) (Auto) 0.7, Neutrophils # (Auto) 5.2, Lymphocytes # (Auto) 2.0, Monocytes # (Auto) 0.7, Eosinophils # (Auto) 0.2, Basophils # (Auto) 0.1, Nucleated Red Blood Cells % (auto) 0.0, Anion Gap 8, Glomerular Filtration Rate > 60.0, Calcium Level 8.8, Total Bilirubin 0.5, Aspartate Amino Transf (AST/SGOT) 49H, Alanine Aminotransferase (ALT/SGPT) 58, Alkaline Phosphatase 94, Total Protein 9.0H, Albumin 2.2L, Albumin/Globulin Ratio 0.32L CBC/BMP Laboratory Tests 04/04/19 06:00 Microbiology Microbiology 03/27/19 Wound Culture - Final, Complete Staphylococcus Aureus Strep Agalactiae Group B Streptococcus Mitis Corynebacterium Species 03/27/19 Wound Culture - Final, Complete Staphylococcus Aureus Strep Agalactiae Group B Streptococcus Mitis Corynebacterium Species 03/27/19 Blood Culture - Final, Complete NO GROWTH AFTER 5 DAYS 03/27/19 Blood Culture - Final, Complete NO GROWTH AFTER 5 DAYS 03/27/19 Wound Culture - Final, Complete Strep Agalactiae Group B Staphylococcus Aureus Streptococcus Mitis 03/27/19 Anaerobic Culture - Final, Complete Eubacterium Lentum Prevotella Intermedia 03/27/19 Wound Culture - Final, Complete Strep Agalactiae Group B Streptococcus Mitis 1/13/20 Anaerobic Culture - Final, Complete ANGELA,HELLEN MD Apr 04, 2019 10:32
[2019-04-04 14:00] VITALS: BP 121/78
--- NOTE | 2019-04-04 17:53 | IPNPDOC ---
Date Seen The patient was seen on 04/04/19. Progress Note SUBJECTIVE: Patient is a 38-year-old male who is status post Left hallux amputation for chronic osteomyelitis and R foot debridement x3 for acute osteomyelitis. Pt had no acute complaints overnight. Dr Jin discussed not amputating the 2nd right toe as he told the pt it was beginning to heal. Pt denies fever, night sweats, chills, chest pain, nausea, vomiting, diarrhea, and hematuria OBJECTIVE PHYSICAL EXAMINATION: VITAL SIGNS: Temperature is 96, pulse 78, respirations 20, blood pressure 153/59, oxygen saturation (O2 sat) 98% on room air. GENERAL: no acute distress, AAOx3 Heart: Normal S1, S2. No murmurs, rubs or gallops. Lungs: Clear to auscultation b/l. No wheezes, rales or rhonchi. Abdomen: Soft, nontender, no hepatosplenomegaly. Extremities: No edema. Right foot cellulitis has resolved. There is a very slight erythematous lesion on the [place] measuring about 2 cm, nontender to touch. Second toe on the right foot is dark blue to necrotic color, nontender- the palmar aspect is beginning to appear perfused but continues to lack sensation. There is an incision on the dorsal aspect of the foot measuring about 2 cm. No purulent discharge. The cellulitis on the dorsal aspect of the foot has practically resolved. The incision on the plantar aspect of the foot measures about 15 cm. Tendons are exposed, but there is no purulence. There is some macerated skin on the border of the incision in the center of foot that is stable. Left big toe amputation, site is clean with no purulence, no discharge, sutures in place. LABORATORY DATA, IMAGING STUDIES, MICROBIOLOGY: Please see below Wound cultures were positive for methicillin-sensitive Staphylococcus aureus (MSSA), Group B strep and Streptococcus mitis. Also, one culture had Eubacterium, Prevotella. MEDICATIONS: IV cefazolin 2 grams every 8 hours and IV Metronidazole 500 mg every 8 hours IMPRESSION: 1. Polymicrobial deep tissue infection of the right foot, status post two incision and drainage, improving, on IV cefazolin due to the fact that one culture had Prevotella, which could be resistant to gram-positive coverage. It is gram-negative anaerobe. Metronidazole was started yesterday (04/03). 2. Second toe on the right foot ischemic changes with skin necrosis. Dr Jin saw the toe and stated it is beginning to heal and that he will not amputate at this time. 3. New onset insulin-dependent diabetes. Glucose has been ranging between 133 and 219 with a value of 186 today. 4. History of tobacco abuse. Patient again encouraged to remain abstinent of smoking. His wheezing has resolved and patient promises he will not go back to smoking. PLAN: Dr. Jin told patient that he will hold off on amputating the second right toe for now. Continue Metronidazole and Cefazolin until discharge. If pt is ready for discharge pt can switch to oral Augmentin for 4 weeks. Follow up with Dr Steele in her office. Pt was seen and course discussed with Dr Edwina Steele, the Infectious Disease preceptor. GME ATTESTATION My faculty preceptor for this patient encounter was physically present during the encounter and was fully available. All aspects of the patient interview, examination, medical decision making process, and medical care plan development were reviewed and approved by the faculty preceptor. The faculty preceptor is aware and concurs with the plan as stated in the body of this note and will attest to such by his/her cosignature. VS, I&O, 24H, Fishbone Vital Signs/I&O Vital Signs Date Time Temp Pulse Resp B/P (MAP) Pulse Ox O2 Delivery O2 Flow Rate FiO2 04/04/19 06:00 96.0 78 20 153/59 (90) 98 04/03/19 14:00 Room Air 03/29/19 18:42 10 I&O- Last 24 Hours up to 6 AM 04/04/19 06:00 Intake Total 2390 ml Output Total 800 ml Balance 1590 ml Laboratory Data 24H LABS Laboratory Tests 2 04/03/19 16:24: Bedside Glucose (Misc Panel) 171H 04/03/19 20:46: Bedside Glucose (Misc Panel) 162H 04/04/19 06:00: Immature Granulocyte % (Auto) 1.1, Neutrophils (%) (Auto) 63.3, Lymphocytes (%) (Auto) 24.1, Monocytes (%) (Auto) 8.7H, Eosinophils (%) (Auto) 2.1, Basophils (%) (Auto) 0.7, Neutrophils # (Auto) 5.2, Lymphocytes # (Auto) 2.0, Monocytes # (Auto) 0.7, Eosinophils # (Auto) 0.2, Basophils # (Auto) 0.1, Nucleated Red Blood Cells % (auto) 0.0, Anion Gap 8, Glomerular Filtration Rate > 60.0, Calcium Level 8.8, Total Bilirubin 0.5, Aspartate Amino Transf (AST/SGOT) 49H, Alanine Aminotransferase (ALT/SGPT) 58, Alkaline Phosphatase 94, Total Protein 9.0H, Albumin 2.2L, Albumin/Globulin Ratio 0.32L 04/04/19 11:41: Bedside Glucose (Misc Panel) 119H CBC/BMP Laboratory Tests 04/04/19 06:00 Microbiology Microbiology 03/27/19 Wound Culture - Final, Complete Staphylococcus Aureus Strep Agalactiae Group B Streptococcus Mitis Corynebacterium Species 03/27/19 Wound Culture - Final, Complete Staphylococcus Aureus Strep Agalactiae Group B Streptococcus Mitis Corynebacterium Species 03/27/19 Blood Culture - Final, Complete NO GROWTH AFTER 5 DAYS 03/27/19 Blood Culture - Final, Complete NO GROWTH AFTER 5 DAYS 03/27/19 Wound Culture - Final, Complete Strep Agalactiae Group B Staphylococcus Aureus Streptococcus Mitis 03/27/19 Anaerobic Culture - Final, Complete Eubacterium Lentum Prevotella Intermedia 03/27/19 Wound Culture - Final, Complete Strep Agalactiae Group B Streptococcus Mitis 03/27/19 Anaerobic Culture - Final, Complete JESSICA HANDLEY OMS-IV Apr 04, 2019 14:18
[2019-04-04 22:00] VITALS: BP 120/80
[2019-04-05] MEDS: ceFAZolin SOD 2 GM in IV 1 EA IV SCH ×3 (05:14→20:58)
[2019-04-05] MEDS: HEPARIN SOD (PORCINE) 5000 UNITS/ML VIAL SC SCH ×3 (05:14→20:58)
[2019-04-05] MEDS: metroNIDAZOLE (FLAGYL) 500 MG TAB PO SCH ×3 (05:14→20:59)
[2019-04-05 06:00] VITALS: BP 120/81
[2019-04-05] MEDS: HumaLOG INSULIN (NovoLOG) PER UNIT SC SCH ×4 (07:30→21:00)
[2019-04-05] MEDS: GABAPENTIN 100 MG CAP PO SCH ×3 (09:02→20:58)
[2019-04-05] MEDS: metFORMIN (GLUCOPHAGE) 500 MG TAB PO SCH ×2 (09:02→17:14)
[2019-04-05] MEDS: NICOTINE 21MG/24HR 1 EA TRANSDERMAL TD SCH (09:02)
[2019-04-05 14:00] VITALS: BP 116/80
[2019-04-05 22:00] VITALS: BP 115/79
[2019-04-06] MEDS: ceFAZolin SOD 2 GM in IV 1 EA IV SCH ×2 (04:25→12:23)
[2019-04-06 06:00] VITALS: BP 117/79
[2019-04-06] MEDS: metroNIDAZOLE (FLAGYL) 500 MG TAB PO SCH ×2 (06:10→12:52)
[2019-04-06] MEDS: HEPARIN SOD (PORCINE) 5000 UNITS/ML VIAL SC SCH ×3 (06:10→21:52)
[2019-04-06] MEDS: HumaLOG INSULIN (NovoLOG) PER UNIT SC SCH ×4 (10:02→21:00)
[2019-04-06] MEDS: metFORMIN (GLUCOPHAGE) 500 MG TAB PO SCH ×2 (10:02→16:54)
[2019-04-06] MEDS: GABAPENTIN 100 MG CAP PO SCH ×3 (10:02→21:53)
[2019-04-06] MEDS: NICOTINE 21MG/24HR 1 EA TRANSDERMAL TD SCH (10:03)
--- NOTE | 2019-04-06 12:46 | IPNPDOC ---
Subjective Date Seen The patient was seen on 04/06/19. Subjective Chief Complaint/HPI Patient offers no new complaints, but he is threatening to sign out AMA tomorrow. If not discharged, podiatry was sent to be observed for possible necrosis of right second toe General: Denies: ROS Unobtainable, Chills, Night Sweats, Fatigue, Malaise, Normal Appetite, Other Symptoms Constitutional: Denies: Chills, Fever, Malaise, Night Sweats, Weakness, Fatigue, Weight Loss, Lethargy, Other Skin: Denies: Rash, Lesions, Jaundice, Bruising, Itching, Dry, Breakdown, Nail Changes, Other Cardiovascular: Denies: Chest Pain, Palpitations, Orthopnea, Paroxysmal Noc. Dyspnea, Edema, Lt Headedness, Other Symptoms Gastrointestinal: Denies: Nausea, Vomiting, Abdominal Pain, Diarrhea, Constipation, Melena, Hematochezia, Other Symptoms Musculoskeletal: Denies: Neck Pain, Back Pain, Shoulder Pain, Arm Pain, Hand Pain, Leg Pain, Foot Pain, Joint Pain, Muscle Pain, Spasms, Other Symptoms Neurological: Denies: Weakness, Numbness, Incoordination, Change in speech, Confusion, Seizures, Other Symptoms Objective Physical Examination Neck Exam: Positive: Supple Chest Exam: Positive: Clear to auscultation, Normal air movement Heart Exam: Positive: Rate Normal, Normal S1 Abdomen Exam: Positive: Normal bowel sounds, Soft Extremity Exam: Positive: Normal pulses Skin Exam: Positive: Nl turgor and temperature Assessment /Plan Problems (1) Osteomyelitis Status: Acute Problem Text: Left toe chronic osteomyelitis: Status post amputation by Podiatry, cultures growing MSSA, group B strep, strep mitis, continue Ancef and pain control. R foot acute osteomyelitis - s/p debridement x3, further debridement as per podiatry, Continue present antibiotics, ID follow-up appreciated. Flagyl has been added for gram-negative anaerobes Podiatry is following the patient and if needed will perform a surgery for amputation of right second toe (2) Newly diagnosed diabetes Status: Acute Problem Text: Continue sliding scale coverage before meals and at bedtime. continue Metformin 500 mg BID, discontinued Levemir as fingersticks have been well-controlled without it.. Plan/VTE VTE Prophylaxis Ordered?: Yes VS, I&O, 24H, Fishbone Vital Signs/I&O Vital Signs Date Time Temp Pulse Resp B/P (MAP) Pulse Ox O2 Delivery O2 Flow Rate FiO2 04/06/19 06:00 97.2 81 17 117/79 (92) 96 Room Air 04/04/19 14:00 97.0 I&O- Last 24 Hours up to 6 AM 04/06/19 06:00 Intake Total 1320 ml Output Total 800 ml Balance 520 ml Laboratory Data 24H LABS Laboratory Tests 2 04/05/19 16:52: Bedside Glucose (Misc Panel) 156H 04/05/19 21:01: Bedside Glucose (Misc Panel) 170H 04/06/19 06:26: Bedside Glucose (Misc Panel) 202H Microbiology Microbiology 03/27/19 Wound Culture - Final, Complete Staphylococcus Aureus Strep Agalactiae Group B Streptococcus Mitis Corynebacterium Species 03/27/19 Wound Culture - Final, Complete Staphylococcus Aureus Strep Agalactiae Group B Streptococcus Mitis Corynebacterium Species 03/27/19 Blood Culture - Final, Complete NO GROWTH AFTER 5 DAYS 03/27/19 Blood Culture - Final, Complete NO GROWTH AFTER 5 DAYS 03/27/19 Wound Culture - Final, Complete Strep Agalactiae Group B Staphylococcus Aureus Streptococcus Mitis 03/27/19 Anaerobic Culture - Final, Complete Eubacterium Lentum Prevotella Intermedia 03/27/19 Wound Culture - Final, Complete Strep Agalactiae Group B Streptococcus Mitis 03/27/19 Anaerobic Culture - Final, Complete HELLEN MILLER MD Apr 06, 2019 12:46
[2019-04-06 14:00] VITALS: BP 140/86
[2019-04-06] MEDS ORDERED: AMOX875T2 PO (17:23)
[2019-04-06] MEDS ORDERED: GLUC500T PO (17:26)
--- NOTE | 2019-04-06 19:51 | IPNPDOC ---
Date Seen The patient was seen on 04/06/19. Progress Note SUBJECTIVE: Patient is a 38-year-old male who is status post Left hallux amputation for chronic osteomyelitis and R foot debridement x3 for acute osteomyelitis. Pt had no acute complaints overnight. Dr Jin discussed not amputating the 2nd right toe as he told the pt it was beginning to heal. Pt denies fever, night sweats, chills, chest pain, nausea, vomiting, diarrhea, and hematuria. OBJECTIVE PHYSICAL EXAMINATION: VITAL SIGNS: Please see below GENERAL: no acute distress, AAOx3 Heart: Normal S1, S2. No murmurs, rubs or gallops. Lungs: Clear to auscultation b/l. No wheezes, rales or rhonchi. Abdomen: Soft, nontender, no hepatosplenomegaly. Extremities: No edema. Right foot cellulitis has resolved. Second toe on the right foot is dark blue to necrotic color, nontender- the palmar aspect is beginning to appear perfused but continues to lack sensation. There is an incision on the dorsal aspect of the foot measuring about 2 cm. No purulent discharge. The incision on the plantar aspect of the foot measures about 15 cm. Tendons are exposed, but there is no purulence. Dressings clean, dry, and intact. Left hallux amputated, now in sock. LABORATORY DATA, IMAGING STUDIES, MICROBIOLOGY: Please see below Wound cultures were positive for methicillin-sensitive Staphylococcus aureus (MSSA), Group B strep and Streptococcus mitis. Also, one culture had Eubacterium, Prevotella. MEDICATIONS: IV cefazolin 2 grams every 8 hours and IV Metronidazole 500 mg every 8 hours IMPRESSION: 1. Polymicrobial deep tissue infection of the right foot, status post two incision and drainage. Switch to Augmentin 875 mg PO for 10 days set to finish on 04/14/19 antibiotic regimen. Pt can be discharged with this PO regimen. Follow up with Dr Steele in two weeks. 2. Second toe on the right foot ischemic changes with skin necrosis. Dr Jin agrees to discharge and will follow up in one week. 3. New onset insulin-dependent diabetes. Glucose has been ranging between 133 and 219 with a value of 168 today. Continue Metformin 500 mg BID on discharge and follow up with [facility]. 4. History of tobacco abuse. Patient again encouraged to remain abstinent of smoking. His wheezing has resolved and patient promises he will not go back to smoking. Patient was using nicotine patches towards the end of his hospital course, encourage maintaining smoking cessation on discharge. PLAN: Pt has improved and remains clinically stable. Complete antibiotic regimen PO Augmentin 875 for 10 days with end date 04/14/19. Pt will see Dr Jin for repeat evaluation of right second toe. Follow up with Dr Steele in her office in two weeks. Pt was seen and course discussed with Dr Edwina Steele, the Infectious Disease preceptor. VS, I&O, 24H, Fishbone Vital Signs/I&O Vital Signs Date Time Temp Pulse Resp B/P (MAP) Pulse Ox O2 Delivery O2 Flow Rate FiO2 04/06/19 14:00 97.1 101 18 140/86 (104) 97 Room Air 04/04/19 14:00 97.0 I&O- Last 24 Hours up to 6 AM 04/06/19 06:00 Intake Total 1320 ml Output Total 800 ml Balance 520 ml Laboratory Data 24H LABS Laboratory Tests 2 04/05/19 21:01: Bedside Glucose (Misc Panel) 170H 04/06/19 06:26: Bedside Glucose (Misc Panel) 202H 04/06/19 12:45: Bedside Glucose (Misc Panel) 206H 04/06/19 16:41: Bedside Glucose (Misc Panel) 168H Microbiology Microbiology 03/27/19 Wound Culture - Final, Complete Staphylococcus Aureus Strep Agalactiae Group B Streptococcus Mitis Corynebacterium Species 03/27/19 Wound Culture - Final, Complete Staphylococcus Aureus Strep Agalactiae Group B Streptococcus Mitis Corynebacterium Species 03/27/19 Blood Culture - Final, Complete NO GROWTH AFTER 5 DAYS 03/27/19 Blood Culture - Final, Complete NO GROWTH AFTER 5 DAYS 03/27/19 Wound Culture - Final, Complete Strep Agalactiae Group B Staphylococcus Aureus Streptococcus Mitis 03/27/19 Anaerobic Culture - Final, Complete Eubacterium Lentum Prevotella Intermedia 03/27/19 Wound Culture - Final, Complete Strep Agalactiae Group B Streptococcus Mitis 03/27/19 Anaerobic Culture - Final, Complete JESSICA HANDLEY OMS-IV Apr 06, 2019 19:51
[2019-04-06] MEDS: AUGMENTIN 875 MG TAB PO SCH (21:53)
[2019-04-06 22:00] VITALS: BP 114/79
[2019-04-07] MEDS: HEPARIN SOD (PORCINE) 5000 UNITS/ML VIAL SC SCH (05:38)
[2019-04-07 06:00] VITALS: BP 124/80
[2019-04-07] MEDS: metFORMIN (GLUCOPHAGE) 500 MG TAB PO SCH (09:14)
[2019-04-07] MEDS: GABAPENTIN 100 MG CAP PO SCH (09:14)
[2019-04-07] MEDS: HumaLOG INSULIN (NovoLOG) PER UNIT SC SCH (09:15)
[2019-04-07] MEDS: AUGMENTIN 875 MG TAB PO SCH (09:15)
[2019-04-07] MEDS: NICOTINE 21MG/24HR 1 EA TRANSDERMAL TD SCH (09:16)
[2019-04-07] MEDS ORDERED: SILV40CR TOP (11:01)
--- NOTE | 2019-04-07 14:00 | DS.PDOC ---
Discharge Summary General Date of Admission Mar 27, 2019 at 02:25 Date of Discharge 04/07/19 Discharge Summary PROCEDURES PERFORMED DURING STAY: I&D Rt Foot ADMITTING DIAGNOSES: 1. Newly diagnosed diabetes mellitus, cellulitis and abscess of right foot , ischemic necrosis left second toe. DISCHARGE DIAGNOSES: 1. Newly diagnosed diabetes mellitus, cellulitis, abscess of right foot ischemic necrosis left second toe. COMPLICATIONS/CHIEF COMPLAINT: Newly Diagnosed Diabetes; cellulitis rt foot HISTORY OF PRESENT ILLNESS: HISTORY OF PRESENT ILLNESS: Patient is a 38-year-old male with PMH of obesity, tobacco dependence, presenting with ambulatory dysfunction. He reports being a workaholic and has not seen provider for 2 years. Approximately one and half to 2 years ago, he started to have bilateral foot numbness and tingling. Earlier today he started to have chills, subjective fevers and increased right foot pain and subsequently came to the emergency department. He was afebrile in the ED, was found to be tachycardic. Labs include WBC of 28.5, H&H and platelet counts were within normal limits, ESR 12, sodium of 128, potassium 3.4, lactic acid 3.2, CRP 29.8, creatinine 1.72, glucose 280, alkaline phosphatase 127, patient does not have an anion gap, beta hydroxybutyrate 4, PT 16, INR 1.3, PTT 32.2. He denies any headaches, changes in vision, chest pain, shortness of breath, nausea, vomiting, abdominal pain, issues with voiding, joint pains. He was also given a bolus of normal saline IV fluids and a dose of ampicillin, a dose of morphine 4 mg IV 1, which she reports did not alleviate his pain, he does report his pain level to be an average of 2, at worst 5.. HOSPITAL COURSE: [38 years old white male who has not been following with any physician came with cellulitis and abscess of right foot ischemic necrosis of left second toe. He already had a first toe amputated by Dr. Jin in the past . She was started on IV antibiotics , cefazolin and metronidazole by infectious disease specialist. Wound cultures were positive for methicillin-sensitive Staphylococcus aureus (MSSA), Group B strep and Streptococcus mitis. Also, one culture had Eubacterium, Prevotella. Patient has improved very well after I&D of his right foot. He might require amputation of his left second toe as outpatie nt. He is clinically stable, has been cleared from ID and podiatry for discharge home on by mouth Augmentin. Patient also would be started on Glucophage for his new-onset diabetes. Patient is scheduled to follow this. PCP and with podiatry as an outpatient in 1-2 weeks. All risks of not taking proper care and getting proper treatment for his medical conditions were explained to him and he understands very well DISCHARGE MEDICATIONS: Please see below. ALLERGIES: Please see below. PHYSICAL EXAMINATION ON DISCHARGE: VITAL SIGNS: Please see below. GENERAL: Within normal limits HEENT: PERRLA. Extraocular muscles intact NECK: Supple CARDIOVASCULAR EXAMINATION: S1, S2, regular RESPIRATORY EXAMINATION: Clear to A&P ABDOMINAL EXAMINATION: , Soft, nontender, bowel sounds present EXTREMITIES: Is intubated left and right foot with ischemic necrosis of left second toe noted SKIN: Normal except ischemic changes at both feet and discoloration at both feet NEUROLOGICAL EXAMINATION: . No focal motor sensory deficit PSYCHIATRIC EXAMINATION: Normal LABORATORY DATA: Please see below. IMAGING: MRI foot:There is evidence of advanced osteomyelitis affecting the proximal and distal phalanges of the great toe on the left side. There is abnormal signal intensity suggesting significant edema in the proximal and distal phalanges of the right great toe however no cortical disruption is seen on the right. No soft tissue abscess is seen on either side. There is extensive soft tissue gas in the plantar soft tissues on the right medial forefoot: PROGNOSIS: ACTIVITY: As tolerated. DIET: Diabetic diet DISCHARGE PLAN: Follow with PCP and podiatry as an outpatient DISPOSITION: 01 Home, Self-Care. DISCHARGE INSTRUCTIONS: 1. As per discharge instructions. ITEMS TO FOLLOWUP ON ON OUTPATIENT: 1. With PCP and podiatry as an outpatient. DISCHARGE CONDITION: Stable. TIME SPENT ON DISCHARGE: 38 minutes. Vital Signs/I&Os Vital Signs Date Time Temp Pulse Resp B/P (MAP) Pulse Ox O2 Delivery O2 Flow Rate FiO2 04/07/19 06:00 98.4 97 18 124/80 (95) 96 Room Air 04/04/19 14:00 97.0 I&O- Last 24 Hours up to 6 AM 04/07/19 06:00 Intake Total 1290 ml Output Total 750 ml Balance 540 ml Laboratory Data Labs 24H Laboratory Tests 2 04/06/19 16:41: Bedside Glucose (Misc Panel) 168H 04/06/19 19:50: Bedside Glucose (Misc Panel) 166H 04/07/19 06:19: Bedside Glucose (Misc Panel) 162H 04/07/19 10:34: Bedside Glucose (Misc Panel) 158H FSBS Laboratory Tests Test 04/06/19 16:41 04/06/19 19:50 04/07/19 06:19 04/07/19 10:34 Range/Units Bedside Glucose (Misc Panel) 168 166 162 158 70-105 MG/DL Discharge Medications Scheduled Amoxicillin/Potassium Clav (Amox-Clav 875-125 mg Tablet) 1 Each Tablet, 875 MG PO BID Metformin HCl (Glucophage) 500 Mg Tablet, 500 MG PO BID@08,18 Silver Sulfadiazine (Silvadene) 400 Gm Cream..g., 1 APLCT TOP BID apply to affected area(s) Allergies Coded Allergies: No Known Allergies (Unverified , 03/27/19) HELLEN MILLER MD Apr 07, 2019 14:00
== END 2019-04-07 11:57 | disposition home or self-care (01) | DRG 710 ==
LOC: M ED 00:33 → M ED INP 02:25 → ENRESERV 03:22 → M PCU 05:13 → M MSPAV 03-31 13:37
PROVIDERS: ADMIT Family Medicine; ATTEND Internal Medicine
PROC: 0KBV0ZZ Excision of Right Foot Muscle, Open Approach (ICD-10-PCS; 2019-03-27)
PROC: 0Y6Q0Z3 Detachment at Left 1st Toe, Low, Open Approach (ICD-10-PCS; principal; 2019-03-27 17:00)
PROC: 0LBV0ZZ Excision of Right Foot Tendon, Open Approach (ICD-10-PCS; 2019-03-27 17:00)
PROC: 0KBV0ZZ Excision of Right Foot Muscle, Open Approach (ICD-10-PCS; 2019-03-29)
PROC: 0LBV0ZZ Excision of Right Foot Tendon, Open Approach (ICD-10-PCS; 2019-03-29)
PROC: 0LBV0ZZ Excision of Right Foot Tendon, Open Approach (ICD-10-PCS; 2019-03-31)
DX: A41.9 Sepsis, unspecified organism (principal); E87.2 Acidosis; E11.52 Type 2 diabetes mellitus with diabetic peripheral angiopathy with gangrene; M86.172 Other acute osteomyelitis, left ankle and foot; B47.1 Actinomycetoma; E11.40 Type 2 diabetes mellitus with diabetic neuropathy, unspecified; E11.649 Type 2 diabetes mellitus with hypoglycemia without coma; L97.511 Non-pressure chronic ulcer of other part of right foot limited to breakdown of skin; E87.1 Hypo-osmolality and hyponatremia; E11.65 Type 2 diabetes mellitus with hyperglycemia; L03.031 Cellulitis of right toe; E66.9 Obesity, unspecified; F17.200 Nicotine dependence, unspecified, uncomplicated; M90.80 Osteopathy in diseases classified elsewhere, unspecified site; E87.6 Hypokalemia; Z79.899 Other long term (current) drug therapy; R65.20 Severe sepsis without septic shock; B95.61 Methicillin susceptible Staphylococcus aureus infection as the cause of diseases classified elsewhere; B95.5 Unspecified streptococcus as the cause of diseases classified elsewhere

== ENCOUNTER → 2019-04-27 | Outpatient (REF) | payer BC ==
[~2019-04-27] MED LIST: AMOX875T2 PO; GLUC500T PO; SILV40CR TOP
[2019-04-27 18:57] LABS: BASO % 0.4 % (0.0-1.0); EOS # 0.3 10^3/uL (0.0-0.5); EOS % 3.8 % (0.0-3.0); HEMATOCRIT 41.7 % (42.0-52.0); HEMOGLOBIN 13.5 g/dl (13.5-17.5); LYMPH % 28.8 % (24.0-44.0); MEAN CORPUSCULAR HEMOGLOBIN 29.9 pg (27.0-33.0); MEAN CORPUSCULAR HGB CONC 32.4 g/dl (32.0-36.5); MEAN CORPUSCULAR VOLUME 92.3 fl (80.0-96.0); MONO # 0.7 10^3/uL (0.0-0.8); MONO % 10.7 % (0.0-5.0); NEUTROPHILS # 3.9 10^3/uL (1.5-8.5); NEUTROPHILS % 55.7 % (36.0-66.0); PLATELET COUNT, AUTOMATED 287 10^3/uL (150-450); RED BLOOD COUNT 4.52 10^6/uL (4.30-6.10); WHITE BLOOD COUNT 6.9 10^3/uL (4.0-10.0)
[2019-04-27 19:01] LABS: BLOOD UREA NITROGEN 7 MG/DL (7-18); C REACTIVE PROTEIN QUANTITATIV 4.65 MG/DL (0.00-0.30); CARBON DIOXIDE LEVEL 31 MEQ/L (21-32); CHLORIDE LEVEL 103 MEQ/L (98-107); CREATININE FOR GFR 0.82 MG/DL (0.70-1.30); GLOMERULAR FILTRATION RATE > 60.0 (>60); GLUCOSE, FASTING 165 MG/DL (70-100); POTASSIUM SERUM 3.7 MEQ/L (3.5-5.1); SODIUM LEVEL 138 MEQ/L (136-145)
[2019-04-27 19:15] LABS: HEMOGLOBIN A1c 8.3 %
[2019-04-27 19:31] LABS: ERYTHROCYTE SEDIMENTATION RATE 124 mm/hr (0-15)
== END ==
LOC: M SFHCPLAZ 14:28
PROVIDERS: ATTEND Internal Medicine Infectious Disease
DX: M86.179 Other acute osteomyelitis, unspecified ankle and foot (principal); E11.42 Type 2 diabetes mellitus with diabetic polyneuropathy

== ENCOUNTER 2019-05-05 08:11 | Day surgery (SDC) | payer BC ==
[~2019-05-05] VITALS: Ht 182.9 cm; Wt 108.0 kg
[~2019-05-05 08:11] MED LIST changes: +TRAM50TA2 PO
[2019-05-05] MEDS ORDERED: MIDAZOLAM INJ 2 MG/2 ML VIAL (J2250) As Ordered ONE ×2 (08:21→10:05)
[2019-05-05] MEDS ORDERED: propofoL 200 MG/20 ML VIAL As Ordered ONE ×2 (08:21→10:26)
[2019-05-05] MEDS ORDERED: ONDANSETRON 4MG/2ML VIAL (J2405) As Ordered ONE (08:21)
[2019-05-05] MEDS ORDERED: LIDOCAINE 2% INJ 100 MG/5 ML SDV (FOR ANES.) As Ordered ONE (08:21)
[2019-05-05] MEDS ORDERED: fentaNYL 100 MCG/2 ML INJECTION (J3010) As Ordered ONE (08:22)
[2019-05-05] MEDS ORDERED: LR 1,000 ML IV ONE (09:00)
[2019-05-05] MEDS ORDERED: VANCOMYCIN 1000 MG/20 ML VIAL (J3370) As Ordered ONE (09:11)
[2019-05-05] MEDS ORDERED: LIDOCAINE 1% MDV 20ML VIAL As Ordered ONE (09:16)
[2019-05-05] MEDS ORDERED: LIDOCAINE 2% MDV 20 ML VIAL As Ordered ONE (09:17)
[2019-05-05] MEDS ORDERED: GENTAMICIN SULF INJ 80MG/2ML VIAL (J1580) As Ordered ONE ×2 (09:17→09:52)
[2019-05-05] MEDS ORDERED: BUPIVACAINE HCL 0.5% 30 ML VIAL As Ordered ONE (09:17)
[2019-05-05] MEDS ORDERED: VANCOMYCIN HCL 500 MG/10 ML VIAL (J3370) As Ordered ONE (09:30)
[2019-05-05] MEDS ORDERED: VANCOMYCIN HCL 1,000 MG, VIAL MATE ADAPTER 1 EACH in D5W 250 ML IV ONE (09:30)
[2019-05-05] MEDS ORDERED: HumaLOG INSULIN (NovoLOG) PER UNIT As Ordered ONE (09:33)
[2019-05-05] MEDS ORDERED: HumaLOG INSULIN (NovoLOG) PER UNIT SC ONE (09:45)
[2019-05-05] MEDS ORDERED: KETAMINE HCL 200 MG/20 ML VIAL As Ordered ONE (09:58)
[2019-05-05] MEDS ORDERED: METOCLOPRAMIDE INJ 10MG/2ML VIAL (J2765) As Ordered ONE (10:32)
--- NOTE | 2019-05-05 11:28 | ECGEPIP ---
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 Electronically Signed on 05-05-2019 11:27:41 EST by Titi Hendrix
--- NOTE | 2019-05-05 11:28 | REP ---
Clinical: Portable postoperative evaluation. Technique: AP, lateral, oblique views of the right foot. Findings: Postoperative changes are appreciated related to amputation at the distal aspect of the second metatarsal shaft. Impression: Status post partial second metatarsal amputation. Electronically Signed by Bob Jean Baptiste MD 05/05/2019 11:20 A
[2019-05-05 12:30] VITALS: BP 137/88
--- NOTE | 2019-05-08 11:32 | RO ---
DATE OF SURGERY: 05/05/2019 PREOPERATIVE DIAGNOSIS: Osteomyelitis 2nd toe and 2nd metatarsal head right foot. POSTOPERATIVE DIAGNOSIS: Osteomyelitis 2nd toe and 2nd metatarsal head right foot. PROCEDURE PERFORMED: 2nd ray amputation right foot. SURGEON: Mateus Jin DPM [employer]: None. ANESTHESIA: Local monitored anesthesia care (MAC). IRRIGATION: Dilute vancomycin solution 2 liter low-pressure pulse lavage system. IMPLANTABLES: Five 5-mm vancomycin-impregnated beads. DRAINS UTILIZED: None. HEMOSTASIS: None. ESTIMATED BLOOD LOSS: 100 mL. DESCRIPTION OF OPERATION: On 05/05/2019, this 38-year-old white male was taken from his hospital room to the operating room and placed on the operating table in a supine position. Following the induction of intravenous (IV) sedation and local and regional anesthesia, the right lower extremity was prepped and draped in the usual aseptic manner. Noted to be a necrotic 2nd toe encompassing the entire dorsal aspect of the 2nd toe. At this time, two semi-elliptical incisions were placed around the 2nd toe. Utilizing a dorsal incision that was used to debride a prior dorsal space abscess, dissection was carried down, and the toe was disarticulated. The head of the proximal phalanx was sent for aerobic and anaerobic culture. Bleeders as encountered were electrocoagulated. Dissection was carried down to the metatarsal head; and utilizing C-arm imagery, an osteotomy was performed at the anatomical neck of the 2nd metatarsal, taking more from the plantar surface. This osteotomy was then dissected free form the surround soft tissue and the metatarsal head removed and was also sent for aerobic andanaerobic culture. Any remaining bleeders were electrocoagulated and utilizing low-pressure pulse lavage system, 3 liters of dilute vancomycin solution was washed through the wound on the dorsal and plantar aspects. The wound was closed with 2-0 nylon after five 5-mm antibiotic beads were placed at the osteotomy site. The wound was closed with minimal tension. A dry sterile dressing was applied, consisting of Adaptic, 4 x 4's, Kerlix, and Coban. The patient, having apparently tolerated the surgical procedure well, was taken from the operating room (OR) to the recovery room for further monitoring by the anesthesia department. Postoperative instructions will be given upon discharge. The patient will continue Augmentin 875 mg, one by mouth twice a day. MTDD
== END 2019-05-05 12:40 | disposition home or self-care (01) ==
LOC: M SDC 08:11
PROVIDERS: ATTEND Podiatrist
DX: L97.518 Non-pressure chronic ulcer of other part of right foot with other specified severity (principal); L02.611 Cutaneous abscess of right foot; E11.621 Type 2 diabetes mellitus with foot ulcer; F17.210 Nicotine dependence, cigarettes, uncomplicated; Z79.899 Other long term (current) drug therapy; Z79.2 Long term (current) use of antibiotics; Z79.891 Long term (current) use of opiate analgesic; Z79.84 Long term (current) use of oral hypoglycemic drugs
CPT/HCPCS: 28820; 73630; 87070; 87075; 87076; 87077; 87186; 87205; 88305; 88311; 93005; 97116; C1713; J1580; J2250; J2405; J2765; J3010; J3370

== ENCOUNTER → 2019-09-13 | Outpatient (REF) | payer BC ==
[2019-09-13 16:40] LABS: ALBUMIN 2.9 GM/DL (3.2-5.2); ALT/SGPT 51 U/L (12-78); BILIRUBIN,TOTAL 0.5 MG/DL (0.2-1.0); BLOOD UREA NITROGEN 11 MG/DL (7-18); C REACTIVE PROTEIN QUANTITATIV 7.77 MG/DL (0.00-0.30); CALCIUM LEVEL 9.6 MG/DL (8.5-10.1); CARBON DIOXIDE LEVEL 30 MEQ/L (21-32); CHLORIDE LEVEL 102 MEQ/L (98-107); CREATININE FOR GFR 0.76 MG/DL (0.70-1.30); GLOMERULAR FILTRATION RATE > 60.0 (>60); GLUCOSE, FASTING 190 MG/DL (70-100); POTASSIUM SERUM 4.1 MEQ/L (3.5-5.1); SODIUM LEVEL 134 MEQ/L (136-145); TOTAL PROTEIN 9.2 GM/DL (6.4-8.2)
[2019-09-13 16:43] LABS: HEMATOCRIT 43.4 % (42.0-52.0); MEAN CORPUSCULAR HEMOGLOBIN 29.9 pg (27.0-33.0); MEAN CORPUSCULAR HGB CONC 32.3 g/dl (32.0-36.5); MEAN CORPUSCULAR VOLUME 92.7 fl (80.0-96.0); PLATELET COUNT, AUTOMATED 540 10^3/uL (150-450); RED BLOOD COUNT 4.68 10^6/uL (4.30-6.10); WHITE BLOOD COUNT 10.5 10^3/uL (4.0-10.0)
[2019-09-13 16:55] LABS: HEMOGLOBIN A1c 9.4 %
[2019-09-13 17:02] LABS: ERYTHROCYTE SEDIMENTATION RATE 67 mm/hr (0-15)
== END ==
LOC: M SFHCCLAY 12:57
PROVIDERS: ATTEND Family Medicine
DX: L97.523 Non-pressure chronic ulcer of other part of left foot with necrosis of muscle (principal); L97.516 Non-pressure chronic ulcer of other part of right foot with bone involvement without evidence of necrosis; E11.621 Type 2 diabetes mellitus with foot ulcer; L97.509 Non-pressure chronic ulcer of other part of unspecified foot with unspecified severity

== ENCOUNTER → 2019-09-19 | Outpatient (REF) | payer BC | LOC: M LAB REF 17:33 | PROVIDERS: ATTEND Surgery | DX: E11.621 Type 2 diabetes mellitus with foot ulcer (principal); L97.514 Non-pressure chronic ulcer of other part of right foot with necrosis of bone ==

== ENCOUNTER → 2020-02-15 | Outpatient (REF) | payer OTHER ==
[2020-02-16 12:45] LABS: HEMOGLOBIN A1c 8.8 %
[2020-02-16 12:57] LABS: BLOOD UREA NITROGEN 13 MG/DL (7-18); CALCIUM LEVEL 9.1 MG/DL (8.5-10.1); CARBON DIOXIDE LEVEL 31 MEQ/L (21-32); CHLORIDE LEVEL 104 MEQ/L (98-107); CREATININE FOR GFR 0.85 MG/DL (0.70-1.30); GLOMERULAR FILTRATION RATE > 60.0 (>60); GLUCOSE, FASTING 164 MG/DL (70-100); POTASSIUM SERUM 4.5 MEQ/L (3.5-5.1); SODIUM LEVEL 139 MEQ/L (136-145)
[2020-02-16 13:08] LABS: MALB URINE SIEMENS 46.8 MG/L; MAU/CREAT RATIO 16.1 MCG/MG (0.0-30.0)
[2020-02-20 21:09] LABS: AMPHETAMINE, URINE GC/MS 1363 ng/mL (Cutoff=500); CANNABINOID, URINE Positive (Cutoff=20); CARBOXY THC (GC/MS) >300 ng/mL (Cutoff=10); CODEINE, URINE Negative (Cutoff=100); CREATININE, URINE 257.8 mg/dL (20.0-300.0); FENTANYL/NORFENTANYL Negative (Cutoff=2000); HYDROCODONE CONFIRM, URINE 6502 ng/mL (Cutoff=100); HYDROCODONE, URINE Positive (.); HYDROMORPHONE CONFIRM, URINE 1355 ng/mL (Cutoff=100); HYDROMORPHONE, URINE Positive (.); METHAMPHETAMINE, URINE Positive (.); METHAMPHETAMINE, URINE GC/MS >5000 ng/mL (Cutoff=500); MORPHINE, URINE Negative (Cutoff=100); OPIATES, URINE Positive ng/mL (Cutoff=300)
== END ==
LOC: M SFHCCLAY 15:42
PROVIDERS: ATTEND Family Medicine
DX: E11.42 Type 2 diabetes mellitus with diabetic polyneuropathy (principal); Z79.891 Long term (current) use of opiate analgesic

== ENCOUNTER → 2020-06-26 | Outpatient (REF) | payer OTHER | LOC: M LAB REF 14:33 | PROVIDERS: ATTEND Surgery | DX: L97.514 Non-pressure chronic ulcer of other part of right foot with necrosis of bone (principal) ==

== ENCOUNTER → 2020-08-21 | Outpatient (REF) | payer OTHER ==
[2020-08-22 11:35] LABS: HEMATOCRIT 49.1 % (42.0-52.0); HEMOGLOBIN 15.7 g/dl (13.5-17.5); MEAN CORPUSCULAR HEMOGLOBIN 29.8 pg (27.0-33.0); MEAN CORPUSCULAR VOLUME 93.3 fl (80.0-96.0); PLATELET COUNT, AUTOMATED 244 10^3/uL (150-450); RED BLOOD COUNT 5.26 10^6/uL (4.30-6.10); WHITE BLOOD COUNT 11.9 10^3/uL (4.0-10.0)
[2020-08-22 13:11] LABS: BLOOD UREA NITROGEN 16 MG/DL (7-18); CALCIUM LEVEL 8.6 MG/DL (8.5-10.1); CARBON DIOXIDE LEVEL 24 MEQ/L (21-32); CHLORIDE LEVEL 106 MEQ/L (98-107); CREATININE FOR GFR 1.03 MG/DL (0.70-1.30); GLOMERULAR FILTRATION RATE > 60.0 (>60); GLUCOSE, FASTING 265 MG/DL (70-100); POTASSIUM SERUM 4.3 MEQ/L (3.5-5.1); SODIUM LEVEL 138 MEQ/L (136-145)
== END ==
LOC: M LABDRWAD 11:10
PROVIDERS: ATTEND Podiatrist Foot & Ankle Surgery
DX: Z01.818 Encounter for other preprocedural examination (principal); M86.9 Osteomyelitis, unspecified

== ENCOUNTER 2022-09-02 10:08 | Inpatient (IN) | payer OTHER ==
[~2022-09-02] VITALS: Ht 170.2 cm; Wt 113.5 kg
[~2022-09-02 10:08] MED LIST changes: +DULA3PEN SC; +METF10004 PO
[2022-09-02 13:00] VITALS: BP 142/95; TEMP 97.9; O2SAT 100
[2022-09-02] MEDS ORDERED: GABA800T4 PO (13:45)
[2022-09-02] MEDS ORDERED: METF-877 PO (13:45)
[2022-09-02] MEDS ORDERED: SEMA1PEN2 SC (13:45)
[2022-09-02] MEDS ORDERED: DULO60CA35 PO (13:45)
[2022-09-02] MEDS ORDERED: HOME MED LIST COMPLETE! XX SCH (13:45)
[2022-09-02] MEDS ORDERED: GLUCAGON INJ 1MG VIAL SC PRN (14:10)
[2022-09-02] MEDS ORDERED: DEXTROSE 50% 50ML SYRINGE IV PRN (14:10)
[2022-09-02] MEDS ORDERED: GLUCOSE 4GM CHEW TABLET PO PRN (14:10)
[2022-09-02] MEDS ORDERED: ALBUTEROL 90 MCG/ACT 8GM HFA INHALER INH PRN (14:10)
[2022-09-02 14:36] LABS: HEMATOCRIT 39.9 % (42.0-52.0); HEMOGLOBIN 12.6 g/dl (13.5-17.5); MEAN CORPUSCULAR HEMOGLOBIN 27.9 pg (27.0-33.0); MEAN CORPUSCULAR HGB CONC 31.6 g/dl (32.0-36.5); MEAN CORPUSCULAR VOLUME 88.5 fl (80.0-96.0); PLATELET COUNT, AUTOMATED 342 10^3/uL (150-450); RED BLOOD COUNT 4.51 10^6/uL (4.30-6.10); WHITE BLOOD COUNT 8.5 10^3/uL (4.0-10.0)
[2022-09-02 14:56] LABS: INR 1.06
[2022-09-02 15:07] LABS: ALBUMIN 2.8 G/DL (3.2-5.2); ALKALINE PHOSPHATASE 99 U/L (46-116); ALT/SGPT 43 U/L (7.0-40); AST/SGOT 21 U/L (<34); BILIRUBIN,TOTAL 0.3 MG/DL (0.3-1.2); BLOOD UREA NITROGEN 7 MG/DL (9-23); CALCIUM LEVEL 8.7 MG/DL (8.5-10.1); CARBON DIOXIDE LEVEL 24 MMOL/L (20-31); CHLORIDE LEVEL 108 MMOL/L (98-107); CREATININE FOR GFR 0.51 MG/DL (0.70-1.30); GLOMERULAR FILTRATION RATE > 60.0 (>60); GLUCOSE, FASTING 179 MG/DL (60-100); POTASSIUM SERUM 4.1 MMOL/L (3.5-5.1); SODIUM LEVEL 139 MMOL/L (136-145); TOTAL PROTEIN 7.1 G/DL (5.7-8.2)
[2022-09-02 15:12] LABS: PROCALCITONIN <0.04 ng/ml
[2022-09-02 15:16] LABS: CHOLESTEROL RISK RATIO 5.54 (<5); HDL CHOLESTEROL 24.7 MG/DL (>40); LDL CHOLESTEROL 92.5 MG/DL (<100); NON-HDL-C 112.3 MG/DL
[2022-09-02 15:44] LABS: HEMOGLOBIN A1c 7.7 % (4.0-6.0)
[2022-09-02] MEDS: GABAPENTIN 400MG CAP PO SCH ×2 (16:16→20:37)
[2022-09-02] MEDS: INSULIN LISPRO (NovoLOG) PER UNIT SC SCH ×2 (18:28→20:38)
[2022-09-02] MEDS: PIPERACILLIN/TAZOBACTAM SOD 3.375 GM in D5W MINI-BAG PLUS 50 ML IV SCH (18:28)
[2022-09-02 20:30] VITALS: BP 139/92; TEMP 98.1; O2SAT 97
[2022-09-02] MEDS: DULoxetine 30MG CAPSULE (CYMBALTA) PO SCH (20:37)
[2022-09-02] MEDS ORDERED: VANCOMYCIN HCL 1,000 MG, VIAL MATE ADAPTER 1 EACH in D5W 250 ML IV ONE ×2 (21:00→22:00)
[2022-09-03] VITALS (9 sets, daily range): BP systolic 114–133; BP diastolic 70–86; TEMP 97.2–97.9; O2SAT 95–99
[2022-09-03] MEDS: PIPERACILLIN/TAZOBACTAM SOD 3.375 GM in D5W MINI-BAG PLUS 50 ML IV SCH ×4 (00:06→18:57)
[2022-09-03] MEDS: VANCOMYCIN HCL 1,000 MG, VIAL MATE ADAPTER 1 EACH in D5W 250 ML IV SCH ×2 (02:51→16:18)
[2022-09-03] MEDS: VANCOMYCIN HCL 750 MG, VIAL MATE ADAPTER 1 EACH in D5W 250 ML IV SCH ×2 (04:40→17:28)
[2022-09-03 06:02] LABS: HEMATOCRIT 39.7 % (42.0-52.0); HEMOGLOBIN 12.7 g/dl (13.5-17.5); MEAN CORPUSCULAR HEMOGLOBIN 27.9 pg (27.0-33.0); MEAN CORPUSCULAR VOLUME 87.3 fl (80.0-96.0); PLATELET COUNT, AUTOMATED 328 10^3/uL (150-450); RED BLOOD COUNT 4.55 10^6/uL (4.30-6.10)
[2022-09-03 06:20] LABS: BLOOD UREA NITROGEN 7 MG/DL (9-23); CALCIUM LEVEL 8.8 MG/DL (8.5-10.1); CARBON DIOXIDE LEVEL 26 MMOL/L (20-31); CHLORIDE LEVEL 105 MMOL/L (98-107); CREATININE FOR GFR 0.57 MG/DL (0.70-1.30); GLOMERULAR FILTRATION RATE > 60.0 (>60); GLUCOSE, FASTING 221 MG/DL (60-100); POTASSIUM SERUM 3.8 MMOL/L (3.5-5.1); SODIUM LEVEL 137 MMOL/L (136-145)
[2022-09-03] MEDS: INSULIN LISPRO (NovoLOG) PER UNIT SC SCH ×4 (07:30→20:50)
[2022-09-03] MEDS: ENOXAPARIN 40MG/0.4ML SYRINGE (J1650 PER 10MG) SC SCH (08:41)
[2022-09-03] MEDS: GABAPENTIN 400MG CAP PO SCH ×3 (09:06→21:07)
[2022-09-03] MEDS: DULoxetine 30MG CAPSULE (CYMBALTA) PO SCH ×2 (09:06→21:07)
[2022-09-03] MEDS ORDERED: LIDOCAINE 1% SDV 30ML VIAL As Ordered ONE (10:12)
[2022-09-03] MEDS ORDERED: LIDOCAINE 2% 100MG/5ML SDV (FOR ANES.) As Ordered ONE (10:35)
[2022-09-03] MEDS ORDERED: ONDANSETRON 4MG 2ML VIAL As Ordered ONE (10:35)
[2022-09-03] MEDS ORDERED: propofoL 200 MG/20 ML VIAL As Ordered ONE ×2 (10:35→11:37)
[2022-09-03] MEDS ORDERED: fentaNYL 100 MCG/2 ML INJECTION As Ordered ONE (10:40)
[2022-09-03] MEDS ORDERED: MIDAZOLAM INJ 2MG/2ML VIAL As Ordered ONE (10:40)
[2022-09-03] MEDS ORDERED: ACETAMINOPHEN 1000MG 100ML IV BAG As Ordered ONE (11:30)
[2022-09-03] MEDS ORDERED: oxyCODONE 5MG TAB PO PRN (12:05)
[2022-09-03] MEDS ORDERED: fentaNYL 100 MCG/2 ML INJECTION IV PRN (12:05)
[2022-09-03] MEDS ORDERED: HYDROMORPHONE HCL 0.5 MG/ 0.5 ML SYRINGE IV PRN (12:05)
[2022-09-03] MEDS ORDERED: LR 1,000 ML IV SCH (12:05)
[2022-09-03] MEDS ORDERED: ONDANSETRON 4MG 2ML VIAL IV PRN (12:05)
[2022-09-04] VITALS (7 sets, daily range): BP systolic 115–122; BP diastolic 66–79; TEMP 97–97.9; O2SAT 95–98
[2022-09-04] MEDS: PIPERACILLIN/TAZOBACTAM SOD 3.375 GM in D5W MINI-BAG PLUS 50 ML IV SCH ×4 (00:07→19:29)
[2022-09-04] MEDS: VANCOMYCIN HCL 1,000 MG, VIAL MATE ADAPTER 1 EACH in D5W 250 ML IV SCH (03:49)
[2022-09-04 04:32] LABS: HEMATOCRIT 39.3 % (42.0-52.0); HEMOGLOBIN 12.6 g/dl (13.5-17.5); MEAN CORPUSCULAR HGB CONC 32.1 g/dl (32.0-36.5); MEAN CORPUSCULAR VOLUME 87.3 fl (80.0-96.0); PLATELET COUNT, AUTOMATED 340 10^3/uL (150-450); WHITE BLOOD COUNT 11.9 10^3/uL (4.0-10.0)
[2022-09-04] MEDS: VANCOMYCIN HCL 750 MG, VIAL MATE ADAPTER 1 EACH in D5W 250 ML IV SCH ×2 (04:58→16:23)
[2022-09-04 04:59] LABS: BLOOD UREA NITROGEN 7 MG/DL (9-23); CARBON DIOXIDE LEVEL 25 MMOL/L (20-31); CHLORIDE LEVEL 105 MMOL/L (98-107); CREATININE FOR GFR 0.62 MG/DL (0.70-1.30); GLOMERULAR FILTRATION RATE > 60.0 (>60); GLUCOSE, FASTING 185 MG/DL (60-100); POTASSIUM SERUM 3.9 MMOL/L (3.5-5.1); SODIUM LEVEL 137 MMOL/L (136-145)
[2022-09-04] MEDS: DULoxetine 30MG CAPSULE (CYMBALTA) PO SCH ×2 (08:34→20:19)
[2022-09-04] MEDS: GABAPENTIN 400MG CAP PO SCH ×3 (08:34→20:20)
[2022-09-04] MEDS: INSULIN LISPRO (NovoLOG) PER UNIT SC SCH ×4 (08:34→21:00)
[2022-09-04] MEDS: ENOXAPARIN 40MG/0.4ML SYRINGE (J1650 PER 10MG) SC SCH (08:35)
[2022-09-04] MEDS: PERCOCET 5MG/325MG TAB PO PRN ×3 (09:23→20:20)
[2022-09-04] MEDS ORDERED: NICOTINE 21MG/24HR 1 EA TRANSDERMAL TD PRN (13:35)
[2022-09-04] MEDS: VANCOMYCIN HCL 500 MG in D5W MINI-BAG PLUS 100 ML IV SCH (17:45)
[2022-09-05] MEDS: VANCOMYCIN HCL 750 MG, VIAL MATE ADAPTER 1 EACH in D5W 250 ML IV SCH ×3
[2022-09-05] MEDS: VANCOMYCIN HCL 500 MG in D5W MINI-BAG PLUS 100 ML IV SCH (01:00)
[2022-09-05 05:44] VITALS: BP 124/74; TEMP 97.3; O2SAT 96
[2022-09-05 06:00] VITALS: BP 124/74
[2022-09-05] MEDS: PIPERACILLIN/TAZOBACTAM SOD 3.375 GM in D5W MINI-BAG PLUS 50 ML IV SCH ×4 (06:05→13:42)
[2022-09-05 07:30] LABS: HEMOGLOBIN 12.4 g/dl (13.5-17.5); MEAN CORPUSCULAR HEMOGLOBIN 28.6 pg (27.0-33.0); MEAN CORPUSCULAR HGB CONC 32.6 g/dl (32.0-36.5); MEAN CORPUSCULAR VOLUME 87.8 fl (80.0-96.0); PLATELET COUNT, AUTOMATED 309 10^3/uL (150-450); RED BLOOD COUNT 4.33 10^6/uL (4.30-6.10); WHITE BLOOD COUNT 10.1 10^3/uL (4.0-10.0)
[2022-09-05] MEDS: INSULIN LISPRO (NovoLOG) PER UNIT SC SCH ×2 (07:30→12:00)
[2022-09-05 07:59] LABS: VANCOMYCIN LEVEL TROUGH 6.9 UG/ML (10.0-20.0)
[2022-09-05 08:00] LABS: BLOOD UREA NITROGEN 8 MG/DL (9-23); CALCIUM LEVEL 8.9 MG/DL (8.5-10.1); CARBON DIOXIDE LEVEL 26 MMOL/L (20-31); CHLORIDE LEVEL 106 MMOL/L (98-107); CREATININE FOR GFR 0.61 MG/DL (0.70-1.30); GLOMERULAR FILTRATION RATE > 60.0 (>60); GLUCOSE, FASTING 157 MG/DL (60-100); POTASSIUM SERUM 3.7 MMOL/L (3.5-5.1); SODIUM LEVEL 138 MMOL/L (136-145)
[2022-09-05] MEDS ORDERED: VANCOMYCIN HCL 1,000 MG, VIAL MATE ADAPTER 1 EACH in D5W 250 ML IV SCH (08:00)
[2022-09-05] MEDS: GABAPENTIN 400MG CAP PO SCH (10:04)
[2022-09-05] MEDS: ENOXAPARIN 40MG/0.4ML SYRINGE (J1650 PER 10MG) SC SCH (10:04)
[2022-09-05] MEDS: DULoxetine 30MG CAPSULE (CYMBALTA) PO SCH (10:05)
[2022-09-05] MEDS: PERCOCET 5MG/325MG TAB PO PRN (10:05)
[2022-09-05] MEDS ORDERED: CEFA1TAB PO (10:18)
[2022-09-05] MEDS ORDERED: OXYC1TAB23 PO (10:25)
[2022-09-05] MEDS ORDERED: CEPH500T PO (13:32)
== END 2022-09-05 14:09 | disposition home health service (06) | DRG 314 ==
LOC: M MSPAV 12:58 → EEVIPCON 12:58
PROVIDERS: ADMIT Internal Medicine Nephrology; ATTEND Internal Medicine
PROC: 0Y6S0Z2 Detachment at Left 2nd Toe, Mid, Open Approach (ICD-10-PCS; 2022-09-03)
PROC: 0JBR0ZZ Excision of Left Foot Subcutaneous Tissue and Fascia, Open Approach (ICD-10-PCS; 2022-09-03)
PROC: 0JBQ0ZZ Excision of Right Foot Subcutaneous Tissue and Fascia, Open Approach (ICD-10-PCS; 2022-09-03)
PROC: 0Y6P0Z2 Detachment at Right 1st Toe, Mid, Open Approach (ICD-10-PCS; principal; 2022-09-03 11:00)
DX: E11.69 Type 2 diabetes mellitus with other specified complication (principal); E11.40 Type 2 diabetes mellitus with diabetic neuropathy, unspecified; J45.20 Mild intermittent asthma, uncomplicated; F17.200 Nicotine dependence, unspecified, uncomplicated; Z79.899 Other long term (current) drug therapy; E11.621 Type 2 diabetes mellitus with foot ulcer; L97.529 Non-pressure chronic ulcer of other part of left foot with unspecified severity; L97.519 Non-pressure chronic ulcer of other part of right foot with unspecified severity; F12.90 Cannabis use, unspecified, uncomplicated; M86.271 Subacute osteomyelitis, right ankle and foot; M86.272 Subacute osteomyelitis, left ankle and foot

== ENCOUNTER 2023-07-14 10:20 | Emergency (ER) | payer MEDICARE, OTHER ==
[~2023-07-14] VITALS: Ht 182.9 cm; Wt 113.4 kg
[2023-07-14 10:20] VITALS: BP 181/87; TEMP 97.4; O2SAT 99
[~2023-07-14 10:20] MED LIST changes: +CEFA1TAB PO; +CEPH500T PO; +DULO60CA35 PO; +GABA800T4 PO; +METF-877 PO; +OXYC1TAB23 PO; +SEMA1PEN2 SC
== END 2023-07-14 10:55 | disposition left against medical advice (07) ==
LOC: M ED 10:20
DX: Z53.21 Procedure and treatment not carried out due to patient leaving prior to being seen by health care provider (principal)

== ENCOUNTER 2023-08-31 02:00 | Emergency (ER) | payer MEDICARE ==
[~2023-08-31] VITALS: Ht 182.9 cm; Wt 114.8 kg
[2023-08-31 05:23] LABS: BASO # 0.1 10^3/uL (0.0-0.2); BASO % 0.5 % (0.0-1.0); EOS # 0.3 10^3/uL (0.0-0.5); EOS % 2.7 % (0.0-3.0); HEMOGLOBIN 14.8 g/dl (13.5-17.5); LYMPH # 3.1 10^3/uL (1.5-5.0); LYMPH % 25.7 % (24.0-44.0); MEAN CORPUSCULAR HEMOGLOBIN 29.1 pg (27.0-33.0); MEAN CORPUSCULAR HGB CONC 32.2 g/dl (32.0-36.5); MEAN CORPUSCULAR VOLUME 90.4 fl (80.0-96.0); MONO # 1.1 10^3/uL (0.0-0.8); MONO % 9.3 % (2.0-8.0); NEUTROPHILS # 7.5 10^3/uL (1.5-8.5); NEUTROPHILS % 61.5 % (36.0-66.0); PLATELET COUNT, AUTOMATED 299 10^3/uL (150-450); RED BLOOD COUNT 5.09 10^6/uL (4.30-6.10); WHITE BLOOD COUNT 12.2 10^3/uL (4.0-10.0)
[2023-08-31 05:49] LABS: BLOOD UREA NITROGEN 14 MG/DL (9-23); CALCIUM LEVEL 8.9 MG/DL (8.5-10.1); CARBON DIOXIDE LEVEL 33 MMOL/L (20-31); CHLORIDE LEVEL 101 MMOL/L (98-107); CREATININE FOR GFR 0.69 MG/DL (0.70-1.30); GLOMERULAR FILTRATION RATE > 60.0 (>60); GLUCOSE, FASTING 145 MG/DL (60-100); SODIUM LEVEL 137 MMOL/L (136-145)
[2023-08-31] MEDS: MORPHINE 2 MG/ML 1ML VIAL IV ONE (05:51)
[2023-08-31 06:45] VITALS: TEMP 98.3
[2023-08-31 06:48] VITALS: BP 126/77; O2SAT 98
[2023-08-31] MEDS: PERCOCET 5MG/325MG TAB PO ONE (06:48)
== END 2023-08-31 07:10 | disposition home or self-care (01) ==
LOC: M ED 02:00
DX: M87.077 Idiopathic aseptic necrosis of right toe(s) (principal); M87.078 Idiopathic aseptic necrosis of left toe(s); E11.9 Type 2 diabetes mellitus without complications; F17.200 Nicotine dependence, unspecified, uncomplicated; J45.909 Unspecified asthma, uncomplicated; F41.9 Anxiety disorder, unspecified; F32.A Depression, unspecified; Z91.048 Other nonmedicinal substance allergy status; Z89.412 Acquired absence of left great toe; Z89.411 Acquired absence of right great toe; Z89.421 Acquired absence of other right toe(s); Z79.899 Other long term (current) drug therapy; Z79.4 Long term (current) use of insulin

== ENCOUNTER → 2024-05-24 | Outpatient (REF) | payer MEDICARE ==
[~2024-05-24] MED LIST changes: +GABA-1635 PO; -GABA800T4 PO; +JARD1TAB PO
[2024-05-24 17:57] LABS: ALBUMIN 3.5 G/DL (3.2-5.2); ALKALINE PHOSPHATASE 116 U/L (40-129); ALT/SGPT 33 U/L (7.0-40); AST/SGOT 10 U/L (<34); BILIRUBIN,TOTAL 0.3 MG/DL (0.3-1.2); BLOOD UREA NITROGEN 16 MG/DL (9-23); CARBON DIOXIDE LEVEL 31 MMOL/L (20-31); CHLORIDE LEVEL 98 MMOL/L (98-107); CHOLESTEROL LEVEL 183 MG/DL (<200); CHOLESTEROL RISK RATIO 4.21 (<5); CREATININE FOR GFR 0.54 MG/DL (0.70-1.30); GLOMERULAR FILTRATION RATE > 60.0 (>60); GLUCOSE, FASTING 295 MG/DL (60-100); HDL CHOLESTEROL 43.4 MG/DL (>40); LDL CHOLESTEROL 102.4 MG/DL (<100); NON-HDL-C 139.6 MG/DL; POTASSIUM SERUM 4.3 MMOL/L (3.5-5.1); SODIUM LEVEL 136 MMOL/L (136-145); TOTAL PROTEIN 8.5 G/DL (5.7-8.2); TRIGLYCERIDES LEVEL 186 MG/DL (<150)
[2024-05-24 18:02] LABS: HEMOGLOBIN A1c 8.8 % (4.0-6.0)
[2024-05-24 18:12] LABS: CREATININE, URINE 109.2 MG/DL; MAU/CREAT RATIO 41.2 MCG/MG (0.0-30.0)
== END ==
LOC: M SFHCCLAY 10:59
PROVIDERS: ATTEND Physician Assistant
DX: E11.42 Type 2 diabetes mellitus with diabetic polyneuropathy (principal); E78.5 Hyperlipidemia, unspecified; Z72.0 Tobacco use; E66.9 Obesity, unspecified

== ENCOUNTER 2024-05-25 13:29 | Inpatient (IN) | payer MEDICARE ==
[~2024-05-25] VITALS: Ht 180.3 cm; Wt 115.8 kg
[~2024-05-25 13:29] MED LIST changes: -JARD1TAB PO
[2024-05-25] MEDS ORDERED: OXYC1TAB23 PO (13:38)
[2024-05-25] MEDS ORDERED: JARD1TAB PO (13:38)
[2024-05-25 14:25] LABS: BASO # 0.1 10^3/uL (0.0-0.2); BASO % 0.6 % (0.0-1.0); EOS # 0.2 10^3/uL (0.0-0.5); EOS % 1.4 % (0.0-3.0); HEMATOCRIT 42.6 % (42.0-52.0); HEMOGLOBIN 13.5 g/dl (13.5-17.5); LYMPH # 1.7 10^3/uL (1.5-5.0); LYMPH % 14.7 % (24.0-44.0); MEAN CORPUSCULAR HEMOGLOBIN 27.8 pg (27.0-33.0); MEAN CORPUSCULAR HGB CONC 31.7 g/dl (32.0-36.5); MEAN CORPUSCULAR VOLUME 87.7 fl (80.0-96.0); MONO # 1.4 10^3/uL (0.0-0.8); MONO % 11.6 % (2.0-8.0); NEUTROPHILS # 8.4 10^3/uL (1.5-8.5); NEUTROPHILS % 71.4 % (36.0-66.0); PLATELET COUNT, AUTOMATED 296 10^3/uL (150-450); RED BLOOD COUNT 4.86 10^6/uL (4.30-6.10); WHITE BLOOD COUNT 11.7 10^3/uL (4.0-10.0)
[2024-05-25 14:30] LABS: ERYTHROCYTE SEDIMENTATION RATE > 130 mm/hr (0-15)
[2024-05-25 14:48] LABS: BLOOD UREA NITROGEN 18 MG/DL (9-23); C REACTIVE PROTEIN QUANTITATIV 8.94 MG/DL (<1.0); CARBON DIOXIDE LEVEL 28 MMOL/L (20-31); CHLORIDE LEVEL 101 MMOL/L (98-107); CREATININE FOR GFR 0.62 MG/DL (0.70-1.30); GLOMERULAR FILTRATION RATE > 60.0 (>60); GLUCOSE, FASTING 334 MG/DL (60-100); POTASSIUM SERUM 4.2 MMOL/L (3.5-5.1); SODIUM LEVEL 136 MMOL/L (136-145)
[2024-05-25] MEDS: GABAPENTIN 400MG CAP PO ONE (18:21)
[2024-05-25] MEDS: PERCOCET 5MG/325MG TAB PO ONE (18:53)
[2024-05-25] MEDS: VANCOMYCIN HCL 2,000 MG, VIAL MATE ADAPTER 1 EACH in NS 500 ML IV ONE (18:54)
[2024-05-25] MEDS ORDERED: HOME MED LIST COMPLETE! XX SCH (18:55)
[2024-05-25] MEDS ORDERED: MOM 30ML SUSPENSION UDC PO PRN (19:55)
[2024-05-25] MEDS ORDERED: VANCOMYCIN HCL 1,000 MG, VIAL MATE ADAPTER 1 EACH in NS 250 ML IV SCH (19:55)
[2024-05-25] MEDS ORDERED: GLUCAGON INJ 1MG VIAL SC PRN (19:55)
[2024-05-25] MEDS ORDERED: DEXTROSE 50% 50ML SYRINGE IV PRN (19:55)
[2024-05-25] MEDS ORDERED: GLUCOSE 4 GM CHEW PO PRN (19:55)
[2024-05-25] MEDS ORDERED: ACETAMINOPHEN 325 MG TAB PO PRN (19:55)
[2024-05-25 20:58] LABS: BASO # 0.1 10^3/uL (0.0-0.2); BASO % 0.4 % (0.0-1.0); EOS # 0.1 10^3/uL (0.0-0.5); EOS % 0.8 % (0.0-3.0); HEMATOCRIT 40.6 % (42.0-52.0); HEMOGLOBIN 13.5 g/dl (13.5-17.5); LYMPH # 1.9 10^3/uL (1.5-5.0); LYMPH % 16.4 % (24.0-44.0); MEAN CORPUSCULAR HGB CONC 33.3 g/dl (32.0-36.5); MEAN CORPUSCULAR VOLUME 87.3 fl (80.0-96.0); MONO # 1.2 10^3/uL (0.0-0.8); MONO % 10.3 % (2.0-8.0); NEUTROPHILS # 8.3 10^3/uL (1.5-8.5); NEUTROPHILS % 71.8 % (36.0-66.0); PLATELET COUNT, AUTOMATED 285 10^3/uL (150-450); RED BLOOD COUNT 4.65 10^6/uL (4.30-6.10); WHITE BLOOD COUNT 11.5 10^3/uL (4.0-10.0)
[2024-05-25] MEDS: INSULIN LISPRO (NovoLOG) PER UNIT SC SCH (21:00)
[2024-05-25 23:14] VITALS: BP 130/82; TEMP 97.3; O2SAT 98
[2024-05-26] MEDS: GABAPENTIN 400MG CAP PO SCH (00:25)
[2024-05-26] MEDS: PIPERACILLIN/TAZOBACTAM SOD 3.375 GM in DEXTROSE 5% (D5W) ADV/MINI-BAG 50 ML IV SCH (00:25)
[2024-05-26] MEDS: PERCOCET 5MG/325MG TAB PO PRN (01:25)
[2024-05-26] MEDS: VANCOMYCIN HCL 1,750 MG, VIAL MATE ADAPTER 1 EACH in NS 500 ML IV SCH (01:56)
[2024-05-26 04:31] VITALS: BP 129/82; TEMP 97; O2SAT 97
[2024-05-26 06:48] LABS: ALBUMIN 3.2 G/DL (3.2-5.2); ALKALINE PHOSPHATASE 96 U/L (40-129); ALT/SGPT 30 U/L (7.0-40); AST/SGOT 13 U/L (<34); BILIRUBIN,TOTAL 0.6 MG/DL (0.3-1.2); BLOOD UREA NITROGEN 14 MG/DL (9-23); CALCIUM LEVEL 8.4 MG/DL (8.5-10.1); CARBON DIOXIDE LEVEL 28 MMOL/L (20-31); CHLORIDE LEVEL 104 MMOL/L (98-107); CREATININE FOR GFR 0.63 MG/DL (0.70-1.30); GLOMERULAR FILTRATION RATE > 60.0 (>60); GLUCOSE, FASTING 175 MG/DL (60-100); POTASSIUM SERUM 4.2 MMOL/L (3.5-5.1); SODIUM LEVEL 140 MMOL/L (136-145); TOTAL PROTEIN 7.8 G/DL (5.7-8.2)
[2024-05-26] MEDS: INSULIN LISPRO (NovoLOG) PER UNIT SC SCH (07:30)
[2024-05-26] MEDS: NICOTINE 14 MG/24 HR TRANSDERMAL TD SCH (08:53)
[2024-05-26] MEDS: HEPARIN SOD (PORCINE) 5000UNITS/ML 1ML VIAL/SYRINGE SC SCH (08:55)
[2024-05-26 10:09] LABS: HEMOGLOBIN A1c 8.9 % (4.0-6.0)
[2024-05-26 12:00] VITALS: BP 108/64; TEMP 96.3
[2024-05-26 20:00] VITALS: BP 116/96; TEMP 97; O2SAT 97
[2024-05-27] VITALS (9 sets, daily range): BP systolic 119–137; BP diastolic 66–84; TEMP 96.8–97.5; O2SAT 93–98
[2024-05-27] MEDS ORDERED: LIDOCAINE 2% 100MG/5ML SDV (FOR ANES.) As Ordered ONE (08:05)
[2024-05-27] MEDS ORDERED: propofoL 200 MG/20 ML VIAL As Ordered ONE (08:05)
[2024-05-27] MEDS ORDERED: fentaNYL 100 MCG/2 ML INJECTION As Ordered ONE (08:05)
[2024-05-27] MEDS ORDERED: MIDAZOLAM INJ 2MG/2ML VIAL As Ordered ONE (08:05)
[2024-05-27] MEDS ORDERED: MORPHINE 2 MG/ML 1ML VIAL IV PRN (09:45)
[2024-05-27] MEDS ORDERED: ONDANSETRON 4MG 2ML VIAL IV PRN (09:45)
[2024-05-27] MEDS ORDERED: oxyCODONE 5MG TAB PO PRN (09:45)
[2024-05-27] MEDS ORDERED: fentaNYL 100 MCG/2 ML INJECTION IV PRN (09:45)
[2024-05-27] MEDS: INSULIN LISPRO (NovoLOG) PER UNIT SC PRN (09:54)
[2024-05-27 12:00] LABS: BASO # 0.1 10^3/uL (0.0-0.2); BASO % 0.3 % (0.0-1.0); EOS # 0.1 10^3/uL (0.0-0.5); EOS % 0.6 % (0.0-3.0); HEMATOCRIT 36.9 % (42.0-52.0); LYMPH # 1.2 10^3/uL (1.5-5.0); LYMPH % 8.2 % (24.0-44.0); MEAN CORPUSCULAR HEMOGLOBIN 28.8 pg (27.0-33.0); MEAN CORPUSCULAR HGB CONC 32.5 g/dl (32.0-36.5); MEAN CORPUSCULAR VOLUME 88.5 fl (80.0-96.0); MONO # 0.4 10^3/uL (0.0-0.8); MONO % 2.5 % (2.0-8.0); NEUTROPHILS # 12.9 10^3/uL (1.5-8.5); PLATELET COUNT, AUTOMATED 272 10^3/uL (150-450); RED BLOOD COUNT 4.17 10^6/uL (4.30-6.10); WHITE BLOOD COUNT 14.7 10^3/uL (4.0-10.0)
[2024-05-27 12:34] LABS: VANCOMYCIN LEVEL TROUGH 13.4 UG/ML (10.0-20.0)
[2024-05-27 12:35] LABS: ALKALINE PHOSPHATASE 93 U/L (40-129); ALT/SGPT 27 U/L (7.0-40); AST/SGOT 18 U/L (<34); BILIRUBIN,TOTAL 0.5 MG/DL (0.3-1.2); BLOOD UREA NITROGEN 17 MG/DL (9-23); C REACTIVE PROTEIN QUANTITATIV 4.16 MG/DL (<1.0); CALCIUM LEVEL 8.1 MG/DL (8.5-10.1); CARBON DIOXIDE LEVEL 27 MMOL/L (20-31); CHLORIDE LEVEL 103 MMOL/L (98-107); CREATININE FOR GFR 0.79 MG/DL (0.70-1.30); GLOMERULAR FILTRATION RATE > 60.0 (>60); GLUCOSE, FASTING 246 MG/DL (60-100); POTASSIUM SERUM 4.6 MMOL/L (3.5-5.1); SODIUM LEVEL 137 MMOL/L (136-145); TOTAL PROTEIN 7.5 G/DL (5.7-8.2)
[2024-05-28 04:02] VITALS: BP 110/72; TEMP 97.3; O2SAT 95
[2024-05-28 12:00] VITALS: BP 130/81; TEMP 97.7; O2SAT 96
[2024-05-28 19:58] VITALS: BP 144/90; TEMP 97.2; O2SAT 96
[2024-05-28] MEDS: VANCOMYCIN HCL 2,000 MG, VIAL MATE ADAPTER 1 EACH in NS 500 ML IV SCH (20:48)
[2024-05-29 03:44] VITALS: BP 143/92; TEMP 97.9; O2SAT 94
[2024-05-29 04:00] VITALS: BP 143/92; TEMP 97.9; O2SAT 94
[2024-05-29 08:30] LABS: BLOOD UREA NITROGEN 8 MG/DL (9-23); CALCIUM LEVEL 8.2 MG/DL (8.5-10.1); CARBON DIOXIDE LEVEL 27 MMOL/L (20-31); CHLORIDE LEVEL 108 MMOL/L (98-107); CREATININE FOR GFR 0.73 MG/DL (0.70-1.30); GLOMERULAR FILTRATION RATE > 60.0 (>60); GLUCOSE, FASTING 162 MG/DL (60-100); POTASSIUM SERUM 3.6 MMOL/L (3.5-5.1); SODIUM LEVEL 142 MMOL/L (136-145)
[2024-05-29 11:40] VITALS: BP 149/84; TEMP 97.9; O2SAT 94
[2024-05-29 13:10] VITALS: BP 141/79; TEMP 96.6; O2SAT 92
[2024-05-29] MEDS ORDERED: BASA100I SC (15:27)
[2024-05-29] MEDS ORDERED: AMOX875T2 PO (15:28)
[2024-05-29] MEDS ORDERED: DOXY100C3 PO (15:29)
[2024-05-29] MEDS ORDERED: HUMA100I5 SC (15:44)
== END 2024-05-29 17:40 | disposition home or self-care (01) | DRG 623 ==
LOC: M ED 13:29 → EEVIPCON 19:55 → M ED INP 19:55 → M MS5PR 23:16
PROVIDERS: ADMIT Internal Medicine; ATTEND Student in an Organized Health Care Education/Training Program
PROC: 0JBQ0ZZ Excision of Right Foot Subcutaneous Tissue and Fascia, Open Approach (ICD-10-PCS; 2024-05-27)
PROC: 0QBP0Z2 Excision of Left Metatarsal, Sesamoid Bone(s) 1st Toe, Open Approach (ICD-10-PCS; principal; 2024-05-27 08:00)
DX: E11.69 Type 2 diabetes mellitus with other specified complication (principal); L03.116 Cellulitis of left lower limb; M86.172 Other acute osteomyelitis, left ankle and foot; E11.40 Type 2 diabetes mellitus with diabetic neuropathy, unspecified; J45.909 Unspecified asthma, uncomplicated; R26.89 Other abnormalities of gait and mobility; B95.5 Unspecified streptococcus as the cause of diseases classified elsewhere; F17.200 Nicotine dependence, unspecified, uncomplicated; Z89.432 Acquired absence of left foot; Z79.899 Other long term (current) drug therapy; Z91.048 Other nonmedicinal substance allergy status; Z89.421 Acquired absence of other right toe(s); Z79.4 Long term (current) use of insulin

== ENCOUNTER 2024-10-02 13:30 | Inpatient (IN) | payer MEDICARE ==
[~2024-10-02] VITALS: Ht 180.3 cm; Wt 129.3 kg
[~2024-10-02 13:30] MED LIST changes: +BASA100I SC; +DOXY100C3 PO; +HUMA100I5 SC; +JARD1TAB PO
[2024-10-02] MEDS ORDERED: HOME MED LIST COMPLETE! XX SCH (14:55)
[2024-10-02 15:09] LABS: BASO # 0.1 10^3/uL (0.0-0.2); BASO % 0.6 % (0.0-1.0); EOS # 0.3 10^3/uL (0.0-0.5); EOS % 3.3 % (0.0-3.0); LYMPH # 2.5 10^3/uL (1.5-5.0); LYMPH % 28.2 % (24.0-44.0); MONO # 1.0 10^3/uL (0.0-0.8); MONO % 11.5 % (2.0-8.0); NEUTROPHILS # 5.1 10^3/uL (1.5-8.5); NEUTROPHILS % 56.1 % (36.0-66.0); PLATELET COUNT, AUTOMATED 251 10^3/uL (150-450)
[2024-10-02 15:13] LABS: ERYTHROCYTE SEDIMENTATION RATE 90 mm/hr (0-15)
[2024-10-02 15:24] LABS: D-DIMER QUANT 0.41 ug/mL (<0.5); INR 0.92
[2024-10-02 15:35] LABS: ALT/SGPT 24 U/L (7.0-40); AST/SGOT 16 U/L (<34); C REACTIVE PROTEIN QUANTITATIV 2.74 MG/DL (<1.0); CALCIUM LEVEL 9.4 MG/DL (8.5-10.1); CARBON DIOXIDE LEVEL 31 MMOL/L (20-31); CHLORIDE LEVEL 98 MMOL/L (98-107); CREATININE FOR GFR 0.85 MG/DL (0.70-1.30); GLOMERULAR FILTRATION RATE > 90.0 (>60); POTASSIUM SERUM 4.5 MMOL/L (3.5-5.1); SODIUM LEVEL 138 MMOL/L (136-145)
[2024-10-02] MEDS: PIPERACILLIN/TAZOBACTAM SOD 3.375 GM in DEXTROSE 5% (D5W) ADV/MINI-BAG 50 ML IV ONE (16:54)
[2024-10-02] MEDS ORDERED: DEXTROSE 50% 50 ML SYRINGE IV PRN (17:10)
[2024-10-02] MEDS ORDERED: GLUCOSE 4 GM CHEW PO PRN (17:10)
[2024-10-02] MEDS ORDERED: GLUCAGON INJ 1 MG VIAL SC PRN (17:10)
[2024-10-02] MEDS: INSULIN LISPRO (NovoLOG) PER UNIT SC SCH ×2 (17:30→21:00)
[2024-10-02] MEDS ORDERED: IPRATROPIUM 0.5 MG/ALBUTEROL 2.5 MG INH SOL UD 3 ML NEB PRN (17:30)
[2024-10-02 17:35] LABS: ESTIMATED AVERAGE GLUCOSE 226.0 MG/DL (60-110)
[2024-10-02 18:08] LABS: ESTIMATED AVERAGE GLUCOSE 235.0 MG/DL (60-110)
[2024-10-02] MEDS: VANCOMYCIN HCL 2,000 MG, VIAL MATE ADAPTER 1 EACH in NS 500 ML IV ONE (18:14)
[2024-10-02] MEDS: SYMBICORT 80/4.5MCG INHALER 6GM INH SCH (19:48)
[2024-10-02 21:15] VITALS: BP 141/81; TEMP 96.8; O2SAT 100
[2024-10-02] MEDS: GABAPENTIN 400 MG CAP PO SCH (22:12)
[2024-10-02] MEDS: PIPERACILLIN/TAZOBACTAM SOD 4.5 GM in DEXTROSE 5% (D5W) ADV/MINI-BAG 50 ML IV SCH (22:12)
[2024-10-02] MEDS: HEPARIN SOD 5000 UNITS/ML 1 ML VIAL/SYRINGE SC SCH (22:13)
[2024-10-02] MEDS: PERCOCET 5MG/325MG TAB PO PRN (22:13)
[2024-10-03] MEDS: VANCOMYCIN HCL 1,750 MG, VIAL MATE ADAPTER 1 EACH in NS 500 ML IV SCH (01:44)
[2024-10-03 04:48] VITALS: BP 152/86; TEMP 96.8; O2SAT 96
[2024-10-03 06:17] LABS: PLATELET COUNT, AUTOMATED 230 10^3/uL (150-450)
[2024-10-03 06:50] LABS: CALCIUM LEVEL 9.0 MG/DL (8.5-10.1); CARBON DIOXIDE LEVEL 28 MMOL/L (20-31); CHLORIDE LEVEL 102 MMOL/L (98-107); CREATININE FOR GFR 0.65 MG/DL (0.70-1.30); GLOMERULAR FILTRATION RATE > 90.0 (>60); POTASSIUM SERUM 4.6 MMOL/L (3.5-5.1); SODIUM LEVEL 139 MMOL/L (136-145)
[2024-10-03 11:42] VITALS: BP 135/84; TEMP 97.2; O2SAT 99
[2024-10-03] MEDS: NICOTINE 21 MG/24 HR 1 EA TRANSDERMAL TD PRN (14:37)
[2024-10-03] MEDS ORDERED: ACETAMINOPHEN 325 MG TAB PO PRN (15:30)
[2024-10-03 19:40] VITALS: BP 105/74; TEMP 97; O2SAT 95
[2024-10-03] MEDS: CEFDINIR 300 MG CAP PO SCH (19:55)
[2024-10-03] MEDS: DOXYCYCLINE HYCLATE 100 MG TABLET PO SCH (19:58)
[2024-10-03] MEDS ORDERED: AUGMENTIN 875 MG TAB PO SCH (21:00)
[2024-10-04 03:16] VITALS: BP 128/83; TEMP 97; O2SAT 99
[2024-10-04 07:49] LABS: BASO # 0.0 10^3/uL (0.0-0.2); BASO % 0.6 % (0.0-1.0); EOS # 0.2 10^3/uL (0.0-0.5); EOS % 2.5 % (0.0-3.0); LYMPH # 1.5 10^3/uL (1.5-5.0); LYMPH % 21.6 % (24.0-44.0); MONO # 0.6 10^3/uL (0.0-0.8); MONO % 7.9 % (2.0-8.0); NEUTROPHILS # 4.8 10^3/uL (1.5-8.5); NEUTROPHILS % 67.3 % (36.0-66.0); PLATELET COUNT, AUTOMATED 240 10^3/uL (150-450)
[2024-10-04 08:11] LABS: C REACTIVE PROTEIN QUANTITATIV 1.58 MG/DL (<1.0); CALCIUM LEVEL 8.5 MG/DL (8.5-10.1); CARBON DIOXIDE LEVEL 29 MMOL/L (20-31); CHLORIDE LEVEL 104 MMOL/L (98-107); CREATININE FOR GFR 0.73 MG/DL (0.70-1.30); GLOMERULAR FILTRATION RATE > 90.0 (>60); POTASSIUM SERUM 4.7 MMOL/L (3.5-5.1); SODIUM LEVEL 141 MMOL/L (136-145)
[2024-10-04] MEDS: LanTUS (INSULIN GLARGINE INJ) 1 UNITS/0.01 ML SC SCH (09:36)
[2024-10-04] MEDS ORDERED: CEFD300CAP PO (09:48)
[2024-10-04] MEDS ORDERED: ALCOPAD25 TOP (09:48)
[2024-10-04] MEDS ORDERED: INSU1MIS20 SC (09:48)
[2024-10-04] MEDS ORDERED: BLOOKIT21 XX (09:48)
[2024-10-04] MEDS ORDERED: SYMB80INH INH (09:48)
[2024-10-04] MEDS ORDERED: GLUC1TES2 XX (09:48)
[2024-10-04] MEDS ORDERED: DOXY100T PO (09:48)
[2024-10-04] MEDS ORDERED: LANC30MI XX (09:48)
[2024-10-04] MEDS ORDERED: LANTINJ4 SC (09:48)
[2024-10-04] MEDS ORDERED: PEN-61 SC (11:34)
[2024-10-04 12:00] VITALS: BP 112/70; TEMP 97.2; O2SAT 96
== END 2024-10-04 12:27 | disposition home or self-care (01) | DRG 300 ==
LOC: M ED 13:30 → M ED INP 17:09 → M MSPAV 21:00
PROVIDERS: ADMIT Internal Medicine; ATTEND Internal Medicine
PROC: 0JBR3ZZ Excision of Left Foot Subcutaneous Tissue and Fascia, Percutaneous Approach (ICD-10-PCS; principal; 2024-10-03)
PROC: 0JBQ3ZZ Excision of Right Foot Subcutaneous Tissue and Fascia, Percutaneous Approach (ICD-10-PCS; 2024-10-03)
DX: E11.52 Type 2 diabetes mellitus with diabetic peripheral angiopathy with gangrene (principal); L03.116 Cellulitis of left lower limb; L03.115 Cellulitis of right lower limb; E11.40 Type 2 diabetes mellitus with diabetic neuropathy, unspecified; E66.01 Morbid (severe) obesity due to excess calories; E11.621 Type 2 diabetes mellitus with foot ulcer; J45.909 Unspecified asthma, uncomplicated; Z68.39 Body mass index [BMI] 39.0-39.9, adult; E11.69 Type 2 diabetes mellitus with other specified complication; Z89.421 Acquired absence of other right toe(s); Z89.422 Acquired absence of other left toe(s); F17.200 Nicotine dependence, unspecified, uncomplicated; F12.90 Cannabis use, unspecified, uncomplicated; Z91.048 Other nonmedicinal substance allergy status; Z79.899 Other long term (current) drug therapy

== ENCOUNTER → 2024-11-15 | Outpatient (REF) | payer MEDICARE ==
[~2024-11-15] MED LIST changes: +ALCOPAD25 TOP; +BLOOKIT21 XX; +CEFD300CAP PO; +DOXY100T PO; +GLUC1TES2 XX; +INSU1MIS20 SC; +LANC30MI XX; +LANTINJ4 SC; +PEN-61 SC; +SYMB80INH INH
== END ==
LOC: M SFHCCLAY 10:28
PROVIDERS: ATTEND Physician Assistant
DX: Z53.9 Procedure and treatment not carried out, unspecified reason (principal)

== ENCOUNTER → 2025-01-16 | Outpatient (REF) | payer MEDICARE | LOC: M SFHCCLAY 15:34 | PROVIDERS: ATTEND Physician Assistant | DX: G89.29 Other chronic pain (principal) ==